=== PATIENT | male | born 1975 | race Caucasian/White ===

== ENCOUNTER 2020-04-01 10:14 | Outpatient (REF) | payer OTHER, SELFPAY | END 2020-04-01 10:15 | disposition home or self-care (01) | LOC: HO.LAB 10:14 | PROVIDERS: Visit Provider Internal Medicine | DX: Z20.828 Contact with and (suspected) exposure to other viral communicable diseases (principal) | CPT/HCPCS: C9803; U0003 ==

== ENCOUNTER 2020-07-03 16:25 | Emergency (ER) | payer OTHER, SELFPAY ==
--- NOTE | ~2020-07-03 | XR_ITS ---
EXAMINATION: XR SHOULDER, LEFT CLINICAL INFORMATION: Pain. COMPARISON: None TECHNIQUE: Three views of the left shoulder. FINDINGS: Slightly atypical positioning/technique. The humeral head articulates with the glenoid. Glenohumeral joint space is maintained. No acute fracture. No gross dislocation. Limited evaluation of the AC joint due to technique.. No soft tissue calcification. Left clavicle appears intact. XR/XR shoulder LT min 2V IMPRESSION: No evidence of acute fracture.
[2020-07-03 16:30] VITALS: BP 132/89; PULSE 110; RESP 18; TEMP 36.7; O2SAT 97; BMI 26.6
== END 2020-07-03 18:12 | disposition left against medical advice (07) ==
PROVIDERS: Emergency Provider Emergency Medicine; PCP Internal Medicine
DX: M25.512 Pain in left shoulder (principal)
CPT/HCPCS: 73030; 99282; 99283

== ENCOUNTER 2022-06-23 20:46 | Emergency (ER) | payer MEDICAID, SELFPAY ==
--- NOTE | ~2022-06-23 | CT_ITS ---
EXAMINATION: CT HEAD WITHOUT CONTRAST CLINICAL INFORMATION: Headache. History of peritoneal shunt. COMPARISON: CT head 06/10/2008 TECHNIQUE: Contiguous axial imaging was performed from the skull base to vertex without intravenous administration of contrast. Coronal and sagittal reformatted images are performed at CT scanner This CT examination was performed using dose optimization techniques as appropriate, variously including the following: *Automated exposure control *Adjustment of mA and/or kV according to patient size (this includes techniques or standardized protocols for targeted exams where dose is matched to indication/reason for exam; i.e. extremities or head) *Use of iterative reconstruction technique DLP: 821 mGy-cm FINDINGS: Redemonstration of findings of Chiari malformation of abnormal posterior fossa, low lying tonsils and agenesis of the corpus callosum. Redemonstration of the 3 right-sided ventricular shunt catheters one of which crosses the midline and terminates in the left lateral frontal horn. The Lateral ventricles are slitlike. No change in appearance since prior study. At the left vertex there is a small hypodense extra-axial collection, small subdural hygroma measuring 0.5 cm in diameter coronal image 128/195 series 7. Low attenuation of this fluid consistent with a chronic subdural hygroma. No acute extra-axial bleed. No intracranial hemorrhage. No mass or mass effect. CT/CT head/brain wo IV con IMPRESSION: 1. No acute intracranial abnormality. 2. Stable appearance of the right-sided ventricular shunt catheters. The lateral ventricles are slitlike. No change since prior study. 3. Small chronic subdural hygroma at the left vertex. No acute extra-axial bleed. No mass effect. 4. Redemonstration of Chiari malformation and agenesis of the corpus callosum.
[2022-06-23 20:49] VITALS: BP 144/90; PULSE 101; RESP 18; TEMP 36.6; O2SAT 98; BMI 25.8
[2022-06-23 21:46] LABS: MANUAL DIFF FLAG NO
[2022-06-23 21:48] LABS: Basophils Percent Auto 0.3 % (0-2); Eosinophils Absolute Auto 0.1 X10*3/uL (0.0-0.4); Eosinophils Percent Auto 1.2 % (0-4); Hemoglobin 14.1 g/dl (14.0-18.0); Imm Gran Abs Auto 0.02 X10*3/uL (0.00-0.03); Imm Gran Pct Auto 0.3 % (0.0-0.4); Lymphocytes Percent Auto 17.3 % (20-40); Mean Corpuscular HGB Conc 32.8 g/dl (31.0-36.0); Mean Corpuscular Hemoglobin 30.3 pg (27.0-33.0); Mean Corpuscular Volume 92.5 fL (80.0-98.0); Mean Platelet Volume 9.7 fL (9.4-12.4); Monocytes Absolute Auto 0.7 X10*3/uL (0.1-1.2); Monocytes Percent Auto 11.5 % (2-11); Neutrophils Absolute Auto 4.1 x10*3/uL (2.0-8.3); Neutrophils Percent Auto 69.4 % (45-73); Platelet Count 177 X10*3/uL (160-400); Red Blood Count 4.65 X10*6/uL (4.60-5.80); Red Cell Distribution Width 13.2 % (11.0-16.0); White Blood Count 5.9 X10*3/uL (4.8-10.8)
[2022-06-23 22:14] LABS: Anion Gap 13 (12-20); Blood Urea Nitrogen 15 mg/dL (9-16); Calcium 8.8 mg/dL (8.4-10.2); Carbon Dioxide 28 mmol/L (22-29); Chloride 103 mmol/L (96-108); Creatinine Clr Calc Pharmacy 93.3; Estimated Glomerular Filt Rate > 60; Glucose Random 141 mg/dL (60-115); Potassium 4.1 mmol/L (3.3-5.1); Sodium 140 mmol/L (135-145)
[2022-06-23 22:31] LABS: COVID-19 Test Negative (Negative); IDNOW Serial# 6674DD1D
--- NOTE | 2022-06-23 22:51 | ED.GENADULT ---
HPI - General Adult General Chief complaint: General Medical Stated complaint: not feeling right not specific Time Seen by Provider: 06/23/22 22:40 Source: patient, family, RN notes reviewed and old records reviewed Mode of arrival: ambulatory Limitations: other (History of cerebral palsy with left-sided deficits) History of Present Illness HPI narrative: 47-year-old male past medical history significant for cerebral palsy, hydrocephalus status post peritoneal shunting presents for evaluation of headache. Patient reports that he has been developing gradual a right-sided headache that started about 8 hours ago He states the pain starts his right temporal region and radiates around the right side with head Towards the back of his head He rates his current discomfort as 6/10. He reports some light sensitivity but denies any visual loss He reports some subjective chills, nausea or body aches He denies any neck pain Denies any cough, shortness of breath or sick contacts He denies any dizziness he reports his balance is at his baseline Related Data Previous Rx's Medication Instructions Recorded ProAir HFA 90 mcg/actuation 2 puff inhalation Q6H PRN for 06/18/20 aerosol inhaler (albuterol sulfate) wheezing #8.5 grams azelastine 137 mcg (0.1 %) nasal 2 spray intranasal BID #90 mL 11/09/21 spray aerosol prednisone 20 mg tablet See Rx Instructions PO DAILY 10 03/07/22 days #15 tabs Allergies Allergy/AdvReac Type Severity Reaction Status Date / Time pineapple Allergy Mild Rash Verified 06/23/22 20:49 Review of Systems Constitutional: Constitutional: Reports as per HPI, Reports body ache(s), Reports chills, Denies fatigue, Denies fever(s), Reports headache(s) and Reports weakness ENT: Reports headache(s) Cardiovascular: Cardiovascular: Denies chest pain and Denies dyspnea Respiratory: Respiratory: Denies cough and Denies dyspnea Gastrointestinal: Gastrointestinal: Denies abdominal pain, Denies constipation, Reports nausea and Denies vomiting Genitourinary: Genitourinary: Denies difficulty urinating and Denies dysuria Neurologic: Denies Abnormal speech present, Reports headache(s) and Reports weakness Endocrine: Endocrine: Denies fatigue [facility] Past Medical History Medical History (Updated 06/23/22 @ 23:51 by Power Vega) Asthma Cerebral palsy Dyspnea Empyema Social History Social History Advance Directives: No Advance Directives Information Provided: Yes Physical Exam ED Vital Signs: Vital Signs - 24 hr 06/23/22 20:49 Temperature 98 F Pulse Rate 101 H Respiratory Rate 18 Blood Pressure 144/90 H Pulse Oximetry 98 Oxygen Delivery Method Room Air BMI result Body Mass Index 25.8 Const General: healthy appearing, comfortable, no acute distress, alert and awake Nutritional Appearance: well nourished Orientation/consciousness: patient oriented x3 Eyes Eyelids: Yes eyelids normal Conjunctivae: conjunctivae normal Sclerae: sclerae normal Corneas: corneas normal Pupils: Equal, round and reactive pupils present EOM: EOMs intact bilaterally Resp Effort & Inspection: normal respiratory effort, able to speak in complete sentences, no audible wheezes and not labored GI Inspection: Yes scar Palpation (GI): Soft to palpation, nontender and no guarding Auscultation: normoactive bowel sounds Skin General skin exam: no rashes or lesions noted and elasticity normal Lesions: no lesions Rashes: no rashes Neuro Other: Club Waiter/Waitress strength left upper extremity is 3/5 compared to 5/5 on the right. Flexion and extension of the left upper extremity is 4/5 compared to 5/5 on the right. Similarly, flexion-extension to the major muscle groups of the left lower extremity L4-5 when compared to 5/5 on right General: patient oriented x3 Cranial nerves: Yes Equal, round and reactive pupils present Cognition (Neuro): normal cognition Speech: No Abnormal speech present Motor exam (neuro): Pronator motor function not present, no tremor noted and Other motor observations present Extrem Left upper extremity: hand (Recurrent deformity with decreased range of motion of the left hand) Medical Decision Making Medical Decision Making MDM Narrative: 43-year-old male presents for evaluation having. Clinically his afebrile but tachycardic to 101 beats per minute. He has flu-like symptoms concerning for viral syndrome. He tested negative for COVID-19. His labs are without worrisome abnormalities. Patient denies any shortness of breath, lung sounds are clear, no abdominal pain nausea or vomiting. Will defer any further imaging of the chest or abdomen at this time. The patient reports that his headache feels different to previous headaches and is concerned about some. We will get a CT scan to evaluate for degree of hydrocephalus and possible subtle malfunction. The patient is neurologically at his baseline. I have a very low suspicion for CVA or intracranial hemorrhage. Differential Diagnosis Viral syndrome Acute headache Influenza COVID-19 Fever Normal-pressure hydrocephalus Peritoneal shunt dysfunction Lab Data 06/23/22 21:42 06/23/22 21:42 Labs: Lab Results 06/23/22 06/23/22 06/23/22 Range/Units 21:42 21:42 21:42 WBC 5.9 (4.8-10.8) X10*3/uL RBC 4.65 (4.60-5.80) X10*6/uL Hgb 14.1 (14.0-18.0) g/dl Hct 43.0 (42.0-52.0) % MCV 92.5 (80.0-98.0) fL MCH 30.3 (27.0-33.0) pg MCHC 32.8 (31.0-36.0) g/dl RDW 13.2 (11.0-16.0) % Plt Count 177 (160-400) X10*3/uL MPV 9.7 (9.4-12.4) fL Immature Gran % (Auto) 0.3 (0.0-0.4) % Neut % (Auto) 69.4 (45-73) % Lymph % (Auto) 17.3 L (20-40) % [place] % (Auto) 11.5 H (2-11) % Eos % (Auto) 1.2 (0-4) % Baso % (Auto) 0.3 (0-2) % Lymph # (Auto) 1.0 L (1.2-4.9) X10*3/uL [place] # (Auto) 0.7 (0.1-1.2) X10*3/uL Eos # (Auto) 0.1 (0.0-0.4) X10*3/uL Baso # (Auto) 0.0 (0.0-0.2) X10*3/uL Abs Immat Gran (auto) 0.02 (0.00-0.03) X10*3/uL Absolute Neuts (auto) 4.1 (2.0-8.3) x10*3/uL Absolute Nucleated RBC 0.000 (0.0-0.012) X10*3/uL Nucleated RBC % (auto) 0.0 (0.0-0.2) /100WBC Sodium 140 (135-145) mmol/L Potassium 4.1 (3.3-5.1) mmol/L Chloride 103 (96-108) mmol/L Carbon Dioxide 28 (22-29) mmol/L Anion Gap 13 (12-20) BUN 15 (9-16) mg/dL Creatinine 1.01 (0.5-1.4) mg/dL Estim Creat Clear Calc 93.3 Estimated GFR > 60 Random Glucose 141 H (60-115) mg/dL Calcium 8.8 (8.4-10.2) mg/dL COVID-19 (CRUZ) Negative (Negative) COVID-19 Clin Com See Note Discharge Plan Discharge Clinical Impression: Headache Patient Disposition: Home, Self-Care Instructions: Acute Headache (ED) Additional Instructions: He may continue to use ibuprofen or Tylenol for any further headaches. Your CT scan did not show any abnormality of your ventricles or dysfunction of your shunt Follow-up with your primary doctor Prescriptions: No Action albuterol sulfate [ProAir HFA] 90 mcg/actuation HFA aerosol inhaler 2 puff inhalation Q6H PRN (Reason: for wheezing) Qty: 8.5 11RF azelastine 137 mcg (0.1 %) aerosol,spray 2 spray intranasal BID Qty: 90 3RF prednisone 20 mg tablet See Rx Instructions PO DAILY 10 Days Qty: 15 0RF Rx Instructions: PO daily; Take 2 tabs daily x 5 days, then 1 tablet daily x 5 days
[2022-06-24 00:01] VITALS: PULSE 92; RESP 16; O2SAT 97
== END 2022-06-24 00:02 | disposition home or self-care (01) ==
PROVIDERS: Emergency Provider Emergency Medicine
DX: R51.9 Headache, unspecified (principal); Z20.822 Contact with and (suspected) exposure to COVID-19; Z20.828 Contact with and (suspected) exposure to other viral communicable diseases; Z79.899 Other long term (current) drug therapy
CPT/HCPCS: 70450; 80048; 85025; 87635; 99282; 99284

== ENCOUNTER 2022-07-22 13:46 | Outpatient (REF) | payer OTHER, SELFPAY ==
--- NOTE | 2022-07-22 16:04 | PFT_ITS ---
FLOWS: 1. FEV1 89% of predicted at 3.47 L. 2. FVC 80% of predicted at 4.00 L. 3. FEV1 to FVC ratio of 0.87. 4. No bronchodilator response. LUNG VOLUMES: 1. Total lung capacity 86% of predicted at 5.83 L. 2. Residual volume 84% of predicted at 1.63 L. 3. Slow vital capacity 87% of predicted at 4.20 L. 4. Expiratory reserve volume 81% of predicted at 0.47 L. 5. Diffusion capacity is minimal. IMPRESSION: No obstructive or restrictive ventilatory defect. No bronchodilator response. Decreased expiratory reserve volume suggests extrathoracic restriction likely secondary to abdominal obesity. Orlando Sosa MD AP/MODL / [id number]
== END 2022-07-22 13:47 | disposition home or self-care (01) ==
LOC: HO.RESP 13:46
PROVIDERS: Visit Provider Hospitalist
DX: R06.00 Dyspnea, unspecified (principal); J45.909 Unspecified asthma, uncomplicated
CPT/HCPCS: 94060; 94727; 94729

== ENCOUNTER → 2022-08-11 13:32 | Outpatient (BNVA) | payer OTHER, SELFPAY | PROVIDERS: PCP Internal Medicine; Visit Provider Hospitalist | DX: J45.909 Unspecified asthma, uncomplicated (principal); R06.00 Dyspnea, unspecified; U09.9 Post COVID-19 condition, unspecified; G47.33 Obstructive sleep apnea (adult) (pediatric) | CPT/HCPCS: 99212 ==

== ENCOUNTER 2022-12-13 13:38 | Outpatient (AMB) | payer OTHER, SELFPAY ==
[2022-12-13 13:43] VITALS: BP 118/60; PULSE 91; O2SAT 95; BMI 30.1
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
== END 2022-12-13 14:08 | disposition home or self-care (01) ==
PROVIDERS: PCP Internal Medicine; Visit Provider Hospitalist
DX: J45.909 Unspecified asthma, uncomplicated (principal); R06.00 Dyspnea, unspecified; U07.1 COVID-19; G47.33 Obstructive sleep apnea (adult) (pediatric)
CPT/HCPCS: 99214

== ENCOUNTER → 2022-12-13 13:38 | Outpatient (BNVA) | payer OTHER, SELFPAY | PROVIDERS: PCP Internal Medicine; Visit Provider Hospitalist | DX: J45.909 Unspecified asthma, uncomplicated (principal); R06.00 Dyspnea, unspecified; G47.33 Obstructive sleep apnea (adult) (pediatric); U09.9 Post COVID-19 condition, unspecified | CPT/HCPCS: 99212 ==

== ENCOUNTER 2023-06-13 13:43 | Outpatient (AMB) | payer OTHER, SELFPAY ==
[2023-06-13 13:49] VITALS: PULSE 84; O2SAT 96; BMI 30.1
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
== END 2023-06-13 14:08 | disposition home or self-care (01) ==
PROVIDERS: PCP Internal Medicine; Visit Provider Hospitalist
DX: R06.09 Other forms of dyspnea (principal); J45.40 Moderate persistent asthma, uncomplicated; U07.1 COVID-19; G47.33 Obstructive sleep apnea (adult) (pediatric)
CPT/HCPCS: 99214

== ENCOUNTER → 2023-06-13 13:43 | Outpatient (BNVA) | payer OTHER, SELFPAY | PROVIDERS: PCP Internal Medicine; Visit Provider Hospitalist | DX: J45.40 Moderate persistent asthma, uncomplicated (principal); R06.09 Other forms of dyspnea; G47.33 Obstructive sleep apnea (adult) (pediatric); Z86.16 Personal history of COVID-19 | CPT/HCPCS: 99212 ==

== ENCOUNTER 2023-07-01 | Outpatient (REF) | payer OTHER, SELFPAY ==
[2023-07-01 08:24] VITALS: PULSE 77; RESP 14; O2SAT 98
--- NOTE | 2023-07-01 14:31 | PFT_ITS ---
Flows: FEV1: 81 % of predicted at 3.14 L FVC: 70 % of predicted at 3.82 L FEV1/FVC: 82 % Bronchodilator response: Absent Volumes: Lung volumes measurements are not available secondary to technical issue. Diffusion capacity: Normal Impression: Essentially normal spirometry. No bronchodilator response. Lung volumes measurements are not available secondary to technical issues. MTDD
== END 2023-07-01 00:01 | disposition home or self-care (01) ==
LOC: HO.RESP
PROVIDERS: PCP Internal Medicine; Visit Provider Hospitalist
DX: R06.00 Dyspnea, unspecified (principal)
CPT/HCPCS: 94010; 94640; 94727; 94729

== ENCOUNTER → 2023-07-01 14:31 | Outpatient (BNV) | payer OTHER, SELFPAY | PROVIDERS: PCP Internal Medicine; Visit Provider Internal Medicine Pulmonary Disease | DX: R06.00 Dyspnea, unspecified (principal) | CPT/HCPCS: 94060; 94729 ==

== ENCOUNTER 2023-10-04 08:38 | Outpatient (AMB) | payer OTHER, SELFPAY ==
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
[2023-10-04 09:11] VITALS: PULSE 85; O2SAT 96; BMI 30.1
== END 2023-10-04 09:30 | disposition home or self-care (01) ==
PROVIDERS: PCP Internal Medicine; Visit Provider Hospitalist
DX: R06.09 Other forms of dyspnea (principal); J45.40 Moderate persistent asthma, uncomplicated; U07.1 COVID-19; G47.33 Obstructive sleep apnea (adult) (pediatric)
CPT/HCPCS: 99214

== ENCOUNTER → 2023-10-04 08:38 | Outpatient (BNVA) | payer OTHER, SELFPAY | PROVIDERS: PCP Internal Medicine; Visit Provider Hospitalist | DX: J45.40 Moderate persistent asthma, uncomplicated (principal); R06.09 Other forms of dyspnea; G47.33 Obstructive sleep apnea (adult) (pediatric); U09.9 Post COVID-19 condition, unspecified | CPT/HCPCS: 99212 ==

== ENCOUNTER 2024-04-09 07:47 | Outpatient (REF) | payer OTHER, SELFPAY | END 2024-04-09 07:48 | disposition home or self-care (01) | LOC: HO.XRAY 07:47 | PROVIDERS: PCP Internal Medicine; Visit Provider Hospitalist | DX: R06.09 Other forms of dyspnea (principal); J45.40 Moderate persistent asthma, uncomplicated; G47.33 Obstructive sleep apnea (adult) (pediatric); R60.0 Localized edema | CPT/HCPCS: 71046; 99212 ==

== ENCOUNTER 2024-04-09 08:45 | Outpatient (AMB) | payer OTHER, SELFPAY ==
[2024-04-09 08:53] VITALS: BP 126/72; PULSE 84; O2SAT 96; BMI 31.3
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
== END 2024-04-09 09:17 | disposition home or self-care (01) ==
PROVIDERS: PCP Internal Medicine; Visit Provider Hospitalist
DX: R06.09 Other forms of dyspnea (principal); J45.40 Moderate persistent asthma, uncomplicated; G47.33 Obstructive sleep apnea (adult) (pediatric); R60.0 Localized edema
CPT/HCPCS: 99214

== ENCOUNTER → 2024-04-17 09:33 | Outpatient (REF) | payer OTHER, SELFPAY ==
--- NOTE | 2024-04-17 09:37 | CA_ITS ---
Transthoracic Echocardiogram Patient (Last, First, Middle): Jarod Napier L Gender: Male Date of : 1975 Age: 49 Procedure Date: 04/17/2024 Procedure Type: Transthoracic Echocardiogram Location: OP Height: 177.8 cm Weight: 98.88 kg BSA: 2.17 m2 Heart Rate: bpm BP: 126 / 72 mmHg Migratory Worker: EDWIN Referring MD: Kun Romero MD Fur Dresser: Curtis Brewster MD Symptoms: I27.20 - Pulmonary hypertension, unspecified Study Quality: Fair ECG Rhythm: Sinus Conclusions: - Essentially normal study Findings Left Ventricle Normal left ventricular size, thickness, and systolic function. The visually estimated ejection fraction is between 55-60%. Spectral Doppler is indicative of a normal filling pattern. Right Ventricle Normal right ventricular cavity size and systolic function. Atria Both atria are normal in size. There is no evidence of interatrial shunt. Aortic Valve Normal aortic valve structure and function. There is no aortic valve stenosis. There is no aortic valve regurgitation. Mitral Valve Normal mitral valve structure and function. There is trace mitral valve regurgitation. There is no mitral valve stenosis. Pulmonic Valve The pulmonic valve is likely normal. Tricuspid Valve Likely normal tricuspid valve structure and function. Tricuspid regurgitation envelope is inadequate for calculation of right ventricular systolic pressure. Normal right atrial pressure. Great Vessels The pulmonary artery was not well visualized. There is no dilatation of the ascending aorta measuring 3.20 cm. Venous The inferior vena cava is normal in size and collapses greater than 50% with inspiration. Pericardium/Pleural There is no evidence of pericardial effusion. Prior Study Comparison No significant change compared to prior study dated: 06/20/2019. Measurements 2D Linear Measurements IVSd: 1.03 0.6-0.9/0.6-1.0 cm LVIDd: 4.67 3.9-5.3/4.2-5.9 cm LVIDd Index: 2.15 2.4-3.2/2.2-3.1 cm/m2 LVIDs: 3.05 2.0-3.6 cm LVPWd: 0.99 0.7-1.1 cm LA Diam: 3.80 2.7-3.8/3.0-4.0 cm LAIDs Index: 1.75 1.5-2.3 cm/m2 LV Mass: 280.64 67-162/88-224 g LV Mass Index: 129.33 43-95/49-115 g/m2 LVOT Diam: 2.30 3.0+(-)1.3 cm 2D Systolic Function EF 4C: 53.30 >55% EF 2C: 64.10 >55% EF BiP: 59.20 >55% Mitral Valve MV Pk E: 0.66 MV PK A: 0.51 MV Decel Time: 132.00 E/A: 1.30 E'Lateral: 10.10 E'Medial: 7.07 E/E' Med: 9.30 E/E' Lat: 6.50 PHT: 39.00 MVA PHT: 5.64 Decel [place]: 4.96 Aortic Valve AoV Pk Sony: 1.08 AoV Mn Sony: 0.76 AoV VTI: 0.22 AoV Pk Grad: 5.00 Aov Mn Grad: 3.00 DENIZ Cont.VTI: 3.85 LVOT LVOT Pk Sony: 0.77 LVOT Mn Sony: 0.52 LVOT VTI: 0.20 LVOT Pk Grad: 2.00 LVOT Mn Grad: 1.00 LVOT Diam: 2.30 LVOT Area: 4.15 Diastolic Function MV Pk E: 0.66 MV Pk A: 0.51 E/A: 1.30 E'Medial: 7.07 E/E' Med: 9.30 E' Laterial: 10.10 E/E' Lat: 6.50 Right Ventricle TAPSE (mm): 21.20 TVS' Sony: 10.90 Tricuspid Valve RA Press: 3.00 Great Vessels Aorta Sinus of Valsalva: 3.41 2.0-3.[address] [place]: 2.94 1.7-3.4 cm Ao Asc: 3.20 2.1-3.4 cm Ao Arch: 2.90 Updated in Other Vendor System with Status of Final Curtis Brewster MD electronically signed on 04/18/2024 1:09:49 PM with status of Final
== END ==
LOC: HO.CARD 09:33
PROVIDERS: Visit Provider Hospitalist
DX: I27.20 Pulmonary hypertension, unspecified (principal)
CPT/HCPCS: 93306

== ENCOUNTER → 2024-04-17 09:37 | Outpatient (BNV) | payer OTHER, SELFPAY | PROVIDERS: Visit Provider Internal Medicine Cardiovascular Disease | DX: I27.20 Pulmonary hypertension, unspecified (principal) | CPT/HCPCS: 93306 ==

== ENCOUNTER 2024-06-13 08:37 | Outpatient (REF) | payer OTHER, SELFPAY ==
--- NOTE | ~2024-06-13 | XR_ITS ---
EXAMINATION: XR CHEST CLINICAL INFORMATION: J45.40 - Moderate persistent asthma, uncomplicated COMPARISON: 04/09/2024. 12/30/2019. TECHNIQUE: 2 views of the chest were obtained. FINDINGS: Several right thoracic anterior GASKET NOTCHER shunt tubes are present. There is mild enlargement of cardiac silhouette. Mediastinal and hilar contours appear normal. The lungs are clear bilaterally. No focal abnormal opacity. There is no pneumothorax or pleural effusion. There is no focal osseous or soft tissue abnormality. Mildly exaggerated thoracic kyphosis with mild right convex scoliosis and mild degenerative changes. Partially imaged cervical fusion. XR/XR chest 2V IMPRESSION: No active pulmonary disease. Mild cardiac enlargement. Stable examination. Electronically signed by: Rolando Carranza MD 06/13/2024 09:37 AM JOSE
--- OUTSIDE RECORDS SUMMARY | 2024-06-13 08:54 | XMS_ITS | Clinical Summary ---
Author Organization [address] [facility] Address [address] [place] [address] Phone Care Team Providers Care Saddle Stitcher Name Role Phone Matilde Danielson MD Primary Care Provider [phone] Allergies Active Allergy Reactions Criticality Noted Date Comments Nany 12/05/2018 Medications Medication Sig Dispensed Refills Start Date End Date Status melatonin 5 mg tablet Take 1 Tablet by mouth at bedtime. 06/25/2023 Active albuterol 2.5 mg /3 mL (0.083 %) nebulizer solution Take 1 Vial by nebulization every 6 hours as needed for Wheezing. 06/08/2021 Active albuterol HFA (PROAIR HFA ; PROVENTIL HFA ; VENTOLIN HFA) 90 mcg/actuation inhaler Inhale 2 Puffs into the lungs every 4 hours as needed for Cough. 06/08/2021 Active aspirin 81 mg EC tablet TAKE 1 TABLET BY MOUTH EVERY DAY 08/15/2023 Active budesonide-formote roL (Symbicort) 160-4.5 mcg/actuation inhaler Inhale 2 Puffs into the lungs daily. 08/08/2023 Active butalbital-acetami nophen-caffeine (FIORICET, ESGIC) 50-325-40 mg per tablet Take 1 Tablet by mouth every 6 hours as needed for Headaches. 09/01/2023 Active cyclobenzaprine (FLEXERIL) 5 mg tablet TAKE 2 TABS BY MOUTH 3 TIMES DAILY NEEDED FOR MUSCLE SPASMS 07/12/2022 Active FLUoxetine (PROzac) 60 mg tablet Take 1 Tablet by mouth daily. 10/26/2021 Active gabapentin (NEURONTIN) 300 mg capsule Take by mouth at bedtime. 09/01/2023 Active senna 8.6 mg tablet TAKE 1 TABLET BY MOUTH EVERYDAY AT BEDTIME 08/15/2023 Active tiZANidine (ZANAFLEX) 2 mg tablet Take 1 Tablet by mouth daily. 12/08/2022 Active tiZANidine (ZANAFLEX) 4 mg tablet TAKE 1 TABLET BY MOUTH EVERY 8 HOURS NEEDED FOR MUSCLE SPASM 01/11/2024 Active traZODone (DESYREL) 150 mg tablet Take 1 Tablet by mouth at bedtime. 08/25/2023 Active atorvastatin (LIPITOR) 80 mg tabletIndications: Dizziness and giddiness,Unsteadi ness on feet Take 1 tablet (80 mg total) by mouth 1 (one) time each day. 90 tablet 3 04/24/2024 Active meclizine (ANTIVERT) 12.5 mg tabletIndications: Dizziness and giddiness,Unsteadi ness on feet Take 1 tablet (12.5 mg total) by mouth 3 (three) times a day if needed for dizziness. 90 tablet 1 05/06/2024 Active gabapentin (NEURONTIN) 600 mg tabletIndications: Dizziness and giddiness,Unsteadi ness on feet Take 1 tablet (600 mg total) by mouth 2 (two) times a day. 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 Restrictive lung disease 06/07/2016 Encounters Date Type Department Care Team Description 05/10/2024 Telephone Internal Medicine [address] [place] [address] Matilde Danielson MD FORM 03/21/2024 1:15 PM EST Office Visit Internal Medicine - [address] [place] [address] Matilde Danielson MD Seizure disorder ([facility]) (Primary Dx); Mixed hyperlipidemia; Adult general medical examination; Mild intermittent asthma without complication; Restrictive lung disease from Last 3 Months Immunizations Name Administration Dates Next Due Influenza Quadravalent, MDCK , 0.5ml, preservative free (Flucelvax) 6mo and older 02/16/2018 Influenza, Unspecified 03/02/2022 Pfizer SARS-CoV-2 COVID-19, mRNA, LNP-S, preservative free 02/23/2021 Surgical History Surgery Date Site/Laterality Comments BACK SURGERY PROCEDURE: HISTORICAL BACK SURGERY OTHER SURGICAL HISTORY 06/17/2020 PROCEDURE: CT ARTHRD PST/PSTLAT TQ 1NTRSPC CRV BELW C2 SEGMENT Medical History Medical History Date Comments Lung nodule 04/21/2017 DX:Lung nodule Spina bifida ([facility]) 04/21/2017 DX:Spina bifida (HCC) Hydrocephalus ([facility]) 04/21/2017 DX:Haines cephalus (HCC) Seizure disorder ([facility]) 04/21/2017 DX:Se izure disorder ([facility]) History of pleural empyema 04/21/2017 DX:Hi story of pleural empyema Arnold-Chiari malformation ([facility]/H[facility]) 10/04/2017 DX:Arnold-Chiari malformation ([facility]) Depression 04/04/2017 DX:Depression Insomnia 10/04/2017 DX:Insomnia Monoplegic infantile cerebra l palsy ([facility]) 06/07/2016 DX:Monoplegic infantile cere bral palsy ([facility]) Restrictive lung disease 06/07/2016 DX:Rest rictive lung disease Allergic rhinitis 10/11/2016 DX:Allergic rh initis Asthma 10/11/2016 DX:Asthma Family History Medical History Relation Name Comments No Known Problems Brother No Known Problems Daughter No Known Problems Father No Known Problems Mother No Known Problems Other No Known Problems Sister No Known Problems Son Autoimmune disease Neg Hx Breast cancer Neg Hx Colon cancer Neg Hx Coronary artery disease Neg Hx Diabetes Neg Hx Heart attack Neg Hx Heart failure Neg Hx Hyperlipidemia Neg Hx Hypertension Neg Hx Mental illness Neg Hx Prostate cancer Neg Hx Sleep apnea Neg Hx Thyroid disease Neg Hx Relation Name Status Comments Brother Daughter Father Mother Other Sister Son Social History Tobacco Use Types Packs/Day Years Used Date Smoking Tobacco: Never Smokeless Tobacco: Never Alcohol Use Standard Drinks/Week Comments No 0 (1 standard drink = 0.6 oz pur e alcohol) Sex and Gender Information Value Date Recorded Sex Assigned at Not on file Gender Identity Not on file Sexual Orientation Not on file Job Start Date Occupation Industry Not on file Not on file Not on file Obstetrics History Last Filed Vital Signs Vital Sign Reading Time Taken Comments Blood Pressure 108/74 03/21/2024 1:20 PM EST Pulse 91 03/21/2024 1:20 PM EST Temperature 37.1 ??C (98.7 ??F) 03/21/2024 1:20 PM ES T Respiratory Rate - - Oxygen Saturation 97% 03/21/2024 1:20 PM EST Inhaled Oxygen Concentration - - Weight 93.9 kg (207 lb) 03/21/2024 1:20 PM EST Height 177.8 cm (5' 10 ) 03/21/2024 1:20 PM EST Body Mass Index 29.7 03/21/2024 1:20 PM EST Plan of Treatment Upcoming Encounters Date Type Department Care Team (Late st Contact Info) Description 03/24/2025 9:00 AM EST Office Visit Internal Medicine - [place] [address] [facility] [address] [place] [address] Matilde Danielson MD [address] [facility] [address] [place] [address] Health Maintenance Due Date Last Done Comments DTaP,Tdap,and Td Vaccines (1 - Tdap) 1994 Hepatitis B Vaccines (1 of 3 - 19+ 3-dose series) 1994 Colorectal Cancer Screening: Colonoscopy 04/16/2022 HIV Screening 04/16/2022 Hepatitis C Screening 04/16/2022 Social Influencers of Health Screening 04/16/2022 COVID-19 Vaccine ( season) 2024 03/01/2023, 02/28/2022, 02/23/2021, Additional history exists Influenza Vaccine (#1) 2024 , 03/02/2022, 02/17/2021, Additional history exists Depression Screening 04/12/2024 04/12/2023 Cholesterol Screening (Lipid Panel) 09/12/2028 09/13/2023, 09/13/2023 Pneumococcal Vaccine: Pediatrics (0 to 5 Years) and At-Risk Patients (6 to 64 Years) Completed 03/01/2023 HIB Vaccines Aged Out No longer eligi ble based on patient's age to complete this topic HPV Vaccines Aged Out No longer eligi ble based on patient's age to complete this topic Hepatitis A Vaccines Aged Out No long er eligible based on patient's age to complete this topic IPV Vaccines Aged Out No longer eligi ble based on patient's age to complete this topic MMR Vaccines Aged Out No longer eligi ble based on patient's age to complete this topic Meningococcal ACWY Vaccine Aged Out N o longer eligible based on patient's age to complete this topic RSV Immunization Patients Under 20 months Aged Out No longer eligible based on patient's age to complete this topic Varicella Vaccines Aged Out No longer eligible based on patient's age to complete this topic Procedures Procedure Name Priority Date/Time Associated Diagnosis Comments LIPID PANEL Routine 09/13/2023 DEPRESSION SCREENING Routine 04/12/2023 from Last 3 Months or Most Recently Relevant to Health Maintenance Results * Lipid panel (09/13/2023) LDL/HDL Ratio 2 0 - 4 Triglycerides 56 0 - 150 mg/dL Cholesterol 135 0 - 200 mg/dL HDL 57 40 mg/dL LDL Cholesterol 67 0 - 100 mg/dL Blood Venous blood specimen / Unknown Historical Provider LAB BLOOD ORDERAB LES * Depression Screening (04/12/2023) Pathologist [facility] Depression Screening Abstracted Historical Provider MD SALVADOR Olivas from Last 3 Months or Most Recently Relevant to Health Maintenance Care Teams Saddle Stitcher Relationship Specialty Start Date End Date Matilde Danielson MD [address] [place] [phone] PCP - General Internal Medicine 04/06/15
--- OUTSIDE RECORDS SUMMARY | 2024-06-13 08:54 | XMS_ITS | Referral Summary ---
Author Organization [facility] Address [address] [place] [address] Care Team Providers Care Conflicts Analyst Name Role Phone Dionicio Singh Primary Care Provider [phone] Allergies Active Allergy Reactions Criticality Noted Date Comments Pineapple Unknown 12/05/2018 Medications aspirin 81 mg EC tablet Take 1 tablet by mouth once a day. 3 Active atorvastatin (LIPITOR) 80 mg tablet Take 80 mg by mouth nightly. Active butalbital-acet aminophen-caffe ine (FIORICET) 50-325-40 mg tablet Take 1 tablet by mouth every 6 hours as needed for headache or migraine. Active cyclobenzaprine (FLEXERIL) 5 mg tablet Take 5 mg by mouth 3 times a day as needed for muscle spasms. 3 Active FLUoxetine (PROzac) 20 mg capsule Take 20 mg by mouth once a day. 3 Active gabapentin (NEURONTIN) 600 mg tablet Take 600 mg by mouth 2 times a day. Active ibuprofen (MOTRIN) 800 mg tablet Take 800 mg by mouth every 8 hours as needed for pain. Active meclizine (ANTIVERT) 12.5 mg tablet Take 12.5 mg by mouth 3 times a day as needed for dizziness. Active melatonin 5 mg tablet Take 5 mg by mouth nightly as needed for sleep. 3 Active senna 8.6 mg tablet Take 1 tablet by mouth daily as needed for constipation. Active tiZANidine (ZANAFLEX) 4 mg tablet Take 4 mg by mouth every 8 hours as needed for muscle spasms. 3 Active traMADoL (ULTRAM) 50 mg tablet Take 50 mg by mouth every 8 hours as needed for pain. Active traZODone (DESYREL) 50 mg tablet Take 50 mg by mouth nightly as needed for sleep. Active albuterol 2.5 mg/3 mL (0.083%) nebulizer solution Inhale 2.5 mg by mouth every 6 hours as needed for shortness of breath or wheezing. Active Active Problems Problem Noted Date Diagnosed Date Cerebrovascular disease 07/19/2023 Social History Tobacco Use Types Packs/Day Years Used Date Smoking Tobacco: Never Smokeless Tobacco: Never Tobacco Cessation:Counseling Given: Not Answered Alcohol Use Standard Drinks/Week Comments Never 0 (1 standard drink = 0.6 oz pur e alcohol) Sex and Gender Information Value Date Recorded Sex Assigned at Male 07/12/2023 9:51 AM EST Legal Sex Male 4:47 PM EDT Gender Identity Male 07/13/2023 1:02 PM EST Sexual Orientation Other 07/13/2023 1: 02 PM EST Last Filed Vital Signs Vital Sign Reading Time Taken Comments Blood Pressure 135/92 07/19/2023 10:23 AM EDT Pulse 81 07/19/2023 10:23 AM EDT Temperature 36.3 ??C (97.3 ??F) 07/19/2023 10:23 AM E DT Respiratory Rate 20 07/19/2023 10:23 AM EDT Oxygen Saturation - - Inhaled Oxygen Concentration - - Weight 90.7 kg (200 lb) 07/19/2023 10:23 AM EDT Height 175.3 cm (5' 9 ) 03/29/2023 8:39 AM EST Body Mass Index 29.53 03/29/2023 8:39 AM EST Plan of Treatment Upcoming Encounters Date Type Department Care Team (Late st Contact Info) Description 07/23/2024 1:30 PM EDT Office Visit [facility] [address] [place] [id number] Bonilla Ely MD [address] [place] [id number] Insurance [facility] MEDICAID [facility] MEDICAID Care Teams Conflicts Analyst Relationship Specialty Start Date End Date Dinoicio Singh [address] [place] [address] [place] [address] PCP - General Neurology 03/13/23
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
--- OUTSIDE RECORDS SUMMARY | 2024-06-13 08:54 | XMS_ITS | Clinical Summary ---
Author Organization [facility] Address [address] [place] [address] Care Team Providers Care Flanging Machine Operator Name Role Phone Dionicio Singh Primary Care Provider [phone] Allergies Active Allergy Reactions Criticality Noted Date [...] Noted Date Diagnosed Date Cerebrovascular disease 07/19/2023 Family History Medical History Relation Name Comments No Known Problems Daughter Kalpana Coronary artery disease Father mult iple bypass surgery Stroke Father a few strokes r ecently No Known Problems Father's Sister Stroke Mother CADASIL No Known Problems Mother's Sister 1 No Known Problems Mother's Sister 2 No Known Problems Other 7 No Known Problems Other 8 Seizures Other 14 Stroke Other 14 Seizures Other 17 Stroke Other 17 Seizures Other 20 Stroke Other 20 Seizures Other 21 Stroke Other 21 Myocardial Infarction Paternal Grandmother Autism spectrum disorder Neg Hx defects Neg Hx Congenital Hearing Loss Neg Hx Congenital heart disease Neg Hx Consanguinity Neg Hx Intellectual Disability Neg Hx Relation Name Status Comments Daughter Kalpana Alive Father Alive Father's Brother (Age 45) Father's Sister Alive Maternal Grandfather Maternal Grandmother Mother (Age 72) Mother's Sister 1 Alive Mother's Sister 2 Alive Other 1 Alive Other 2 Alive Other 3 Alive Other 4 Alive Other 5 Alive Other 6 Alive Other 7 Alive Other 8 Alive Other 9 Alive Other 10 Alive Other 11 Alive Other 12 Alive Other 13 Alive Other 14 Other 15 Other 16 Other 17 Other 18 Other 19 Other 20 Alive Other 21 Alive Paternal Grandfather no info , never met him Paternal Grandmother (Age 75) Social History Tobacco Use Types Packs/Day Years [...] Description 07/23/2024 1:30 PM EDT Office Visit [facility] [address] [place] [address] Bonilla Ely MD [address] [place] [address] Health Maintenance Due Date Last Done Comments Cologuard 1975 Colon Cancer Screening 1975 Colonoscopy 1975 FOBT / Fit Test 1975 HIV Screening 1975 Hepatitis C Screening 1975 Sigmoidoscopy 1975 Hepatitis B Vaccines (1 of 3 - 19+ 3-dose series) 1994 DTaP,Tdap,and Td Vaccines (1 - Tdap) 1997 COVID-19 Vaccine (2023-2 5 season) 2024 03/01/2023, 02/28/2022, 02/23/2021, Additional history exists Influenza Vaccine (#1) 2024 , 03/02/2022, 02/17/2021, Additional history exists Alcohol/Substance Use Screening 05/08/2024 Depression Screening and Follow-Up 05/08/2024 Social Drivers of Health Justyna ual Screening 05/08/2024 RSV Vaccine (60+ years old a nd patients) (1 - 1-dose 75+ series) 2050 Pneumococcal Vaccine: Pediat refugio (0-5 Years) and At-Risk Patients (6-64 Years) Completed 03/01/[address] [place] [address] [place] [address] MEDICAID Care Teams Flanging Machine Operator Relationship Specialty Start Date End Date Dionicio Singh [address] [place] [address] [place] [address] PCP - General Neurology 03/13/23
== END 2024-06-13 08:38 | disposition home or self-care (01) ==
LOC: HO.XRAY 08:37
PROVIDERS: PCP Internal Medicine; Visit Provider Hospitalist
DX: J45.40 Moderate persistent asthma, uncomplicated (principal); R06.09 Other forms of dyspnea; R60.0 Localized edema; G47.33 Obstructive sleep apnea (adult) (pediatric)
CPT/HCPCS: 71046; 99212

== ENCOUNTER → 2024-06-13 08:40 | Outpatient (BNV) | payer OTHER, SELFPAY | PROVIDERS: PCP Internal Medicine; Visit Provider Radiology Diagnostic Radiology | DX: J45.40 Moderate persistent asthma, uncomplicated (principal) | CPT/HCPCS: 71046 ==

== ENCOUNTER → 2024-06-13 08:53 | Outpatient (AMB) | payer OTHER, SELFPAY ==
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
== END | disposition home or self-care (01) ==
PROVIDERS: PCP Internal Medicine; Visit Provider Hospitalist
DX: R06.09 Other forms of dyspnea (principal); J45.40 Moderate persistent asthma, uncomplicated; G47.33 Obstructive sleep apnea (adult) (pediatric); R60.0 Localized edema
CPT/HCPCS: 99214

== ENCOUNTER 2025-02-11 08:44 | Outpatient (AMB) | payer OTHER, SELFPAY ==
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
[2025-02-11 08:49] VITALS: BP 118/70; PULSE 78; O2SAT 95; BMI 28.3
--- OUTSIDE RECORDS SUMMARY | 2025-02-11 09:27 | XMS_ITS | Clinical Summary ---
Author Organization [facility] Address [address] [place] [address] Care Team Providers Care Asian Studies Program Chair Name Role Phone Dionicio Singh Primary Care Provider [phone] Allergies Active Allergy Reactions Criticality Noted Date [...] nightly as needed for sleep. 3 Active albuterol 2.5 mg/3 mL (0.083%) nebulizer solution Inhale 2.5 mg by mouth every 6 hours as needed for shortness of breath or wheezing. Active Active Problems Problem Noted Date Diagnosed Date White matter disease 07/28/2024 Sequela of cardioembolic stroke 07/28/2024 Cerebrovascular disease 07/19/2023 Family History Medical History [...] Sign Reading Time Taken Comments Blood Pressure 127/87 07/23/2024 1:07 PM EDT Pulse 114 07/23/2024 1:07 PM EDT Temperature 37 C (98.6 F) 07/23/2024 1:07 PM EDT Respiratory Rate 16 07/23/2024 1:07 PM EDT Oxygen Saturation - - Inhaled Oxygen Concentration - - Weight 94.8 kg (209 lb) 07/23/2024 1:07 PM EDT Height 175.3 cm (5' 9 ) 07/23/2024 1:07 PM EDT Body Mass Index 30.86 07/23/2024 1:07 PM EDT Plan of Treatment Upcoming Encounters Date Type Department Care Team (Late st Contact Info) Description 03/25/2025 1:00 PM EST Office Visit [facility] [address] [place] [address] [phone] Dede Francisco MD [address] [place] [phone] Health Maintenance Due Date Last Done Comments Cologuard 1975 Colon Cancer Screening 1975 Colonoscopy 1975 FOBT / Fit Test 1975 HIV Screening 1975 Hepatitis C Screening 1975 Sigmoidoscopy 1975 Hepatitis B Vaccines (1 of 3 - 19+ 3-dose series) 1994 DTaP,Tdap,and Td Vaccines (1 - Tdap) 1997 Diabetes Screening 2010 Alcohol/Substance Use Screening 05/08/2024 Depression Screening and Follow-Up 05/08/2024 Social Drivers of Health Justyna ual Screening 05/08/2024 COVID-19 Vaccine (6 - 2024-2 6 season) 2025 03/01/2023, 02/28/2022, 02/23/2021, Additional history exists Influenza Vaccine (#1) 2025 , 03/02/2022, 02/17/2021, Additional history exists RSV Vaccine (60+ years old a nd patients) (1 - 1-dose 75+ series) 2050 Pneumococcal Vaccine: Pediat refugio (0-5 Years) and At-Risk Patients (6-50 Years) Completed 03/01/[address] [place] [address] [place] [address] MEDICAID [employer] Care Teams Asian Studies Program Chair Relationship Specialty Start Date End Date Dionicio Singh [address] [place] [address] [place] [address] PCP - General Neurology 03/13/23
--- OUTSIDE RECORDS SUMMARY | 2025-02-11 09:27 | XMS_ITS | Clinical Summary ---
Author Organization [address] [facility] Address [address] [place] [address] Phone Care Team Providers Care Equipment Mechanic Name Role Phone Matilde Danielson MD Primary Care Provider [phone] Allergies Active Allergy Reactions Criticality Noted Date Comments Pineapple 12/05/2018 Medications albuterol 2.5 mg /3 mL (0.083 %) nebulizer solution Take 1 Vial by nebulization every 6 hours as needed for Wheezing. 2 Active albuterol HFA (PROAIR HFA ; PROVENTIL HFA ; VENTOLIN HFA) 90 mcg/actuation inhaler Inhale 2 Puffs into the lungs every 4 hours as needed for Cough. 2 Active budesonide-form oteroL (Symbicort) 160-4.5 mcg/actuation inhaler Inhale 2 Puffs into the lungs daily. 4 Active butalbital-acet aminophen-caffe ine (FIORICET, ESGIC) 50-325-40 mg per tablet Take 1 Tablet by mouth every 6 hours as needed for Headaches. 4 Active aspirin 81 mg EC tabletIndicatio ns:Dizziness and giddiness,Unste adiness on feet Take 1 tablet (81 mg total) by mouth 1 (one) time each day. 90 tablet 1 5 Active atorvastatin (LIPITOR) 80 mg tabletIndicatio ns:Dizziness and giddiness,Unste adiness on feet Take 1 tablet (80 mg total) by mouth 1 (one) time each day. 90 tablet 3 5 Active cyclobenzaprine (FLEXERIL) 5 mg tablet Take 1 tablet (5 mg total) by mouth 3 (three) times a day if needed for muscle spasms. 30 tablet 3 5 Active gabapentin (NEURONTIN) 600 mg tabletIndicatio ns:Dizziness and giddiness,Unste adiness on feet Take 1 tablet (600 mg total) by mouth 2 (two) times a day. 60 tablet 8 5 Active meclizine (ANTIVERT) 12.5 mg tabletIndicatio ns:Dizziness and giddiness,Unste adiness on feet Take 1 tablet (12.5 mg total) by mouth 3 (three) times a day if needed for dizziness. 90 tablet 1 5 Active melatonin 5 mg tablet Take 1 tablet (5 mg total) by mouth at bedtime. at bedtime. 90 tablet 1 5 Active senna 8.6 mg tabletIndicatio ns:Dizziness and giddiness,Unste adiness on feet Take 1 tablet (8.6 mg total) by mouth at bedtime. 90 tablet 1 5 Active tiZANidine (ZANAFLEX) 4 mg tablet Take 1 tablet (4 mg total) by mouth every 8 (eight) hours if needed for muscle spasms. 270 tablet 1 5 Active traZODone (DESYREL) 150 mg tablet Take 1 tablet (150 mg total) by mouth at bedtime. at bedtime. 90 tablet 2 5 Active FLUoxetine (PROzac) 20 mg capsule Take 3 capsules (60 mg total) by mouth 1 (one) time each day. 90 each 5 5 Active Active Problems Problem Noted Date Diagnosed Date Nonintractable headache 06/27/2022 COVID-19 virus detected 11/10/2021 Herniation of intervertebral disc at C5-C6 level 06/15/2020 Arnold-Chiari malformation ([facility] V24, [facility] V28) 10/04/2017 Insomnia 10/04/2017 Hydrocephalus ([facility] V24, [facility] V28) 017 Seizure disorder ([facility] V24, [facility] V28) 04/07 Lung nodule 04/21/2017 Spina bifida ([facility] V24, [facility] V28) 04/21/20 17 Depression 04/04/2017 Allergic rhinitis 10/11/2016 Asthma 10/11/2016 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, [facility]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 Restrictive lung disease 06/07/2016 Encounters Date Type Department Care Team Description 01/20/2025 Telephone [facility] [address] [facility] [address] [place] [address] Sri Hebert [place] 12/31/2024 Telephone Internal Medicine - [place] [address] [facility] [address] [place] [address] Hiram Claudio [place] 11/22/2024 9:30 AM EDT Office Visit [facility] [address] [facility] [address] [place] [address] Mildred Mendoza, PA Seizure disorder ([facility] V24, [facility] V28) (Primary Dx) from Last 3 Months Immunizations Immunization Administration Dates Next Due Influenza Quadravalent, MDCK , 0.5ml, preservative free (Flucelvax) 6mo and older 02/16/2018 Influenza, Unspecified 03/02/2022 Pfizer SARS-CoV-2 COVID-19, mRNA, LNP-S, preservative free 02/23/2021 Surgical History Surgery Date Site/Laterality Comments BACK SURGERY PROCEDURE: HISTORICAL BACK SURGERY OTHER SURGICAL HISTORY 06/17/2020 PROCEDURE: ME ARTHRD PST/PSTLAT TQ 1NTRSPC CRV BELW C2 SEGMENT Medical History Medical History Date Comments Lung nodule 04/21/2017 DX:Lung nodule Spina bifida ([facility] V24, C [facility] V28) 04/21/2017 DX:Spina bifida (HCC) Hydrocephalus ([facility] V24, [facility] V28) 04/21/2017 DX:Hydrocephalus (HCC) Seizure disorder ([facility] V2 4, [facility] V28) 04/21/2017 DX:Seizure disorder ([facility]) History of pleural empyema 04/21/2017 DX:Ne story of pleural empyema Arnold-Chiari malformation ( [facility] V24, [facility] V28) 10/04/2017 DX:Arnold-Chiari malformatio n ([facility]) Depression 04/04/2017 DX:Depression Insomnia 10/04/2017 DX:Insomnia 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, [facility]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 DX:Monoplegic infantile cer ebral palsy ([facility]) Restrictive lung disease 06/07/2016 DX:Rest rictive lung [...] Recorded Sex Assigned at Not on file Legal Sex Male 6:39 PM EST Gender Identity Not on file Sexual Orientation Not on file Obstetrics History Last Filed Vital Signs Vital Sign Reading Time Taken Comments Blood Pressure 106/74 11/22/2024 9:23 AM EDT Pulse 70 11/22/2024 9:23 AM EDT Temperature 36.8 C (98.2 F) 11/22/2024 9:23 AM EDT Respiratory Rate - - Oxygen Saturation 97% 11/22/2024 9:23 AM EDT Inhaled Oxygen Concentration - - Weight 91.3 kg (201 lb 3.2 oz) 11/22/2024 9:23 A M EDT Height 175.3 cm (5' 9 ) 11/22/2024 9:23 AM EDT Body Mass Index 29.71 11/22/2024 9:23 AM EDT Plan of Treatment Upcoming Encounters Date Type Department Care Team (Late st Contact Info) Description 03/05/2025 2:30 PM EDT Office Visit [facility] [place] [address] [place] [phone] Mildred Mendoza PA [address] [place] [address] 03/24/2025 9:00 AM EST Office Visit Internal Medicine - [place] [address] [place] [phone] Matilde Danielson MD [address] [facility] [address] [place] [address] Health Maintenance Due Date Last Done Comments Colorectal Cancer Screening: Colonoscopy 1975 DTaP,Tdap,and Td Vaccines (1 - Tdap) 1994 Hepatitis B Vaccines (1 of 3 - 19+ 3-dose series) 1994 HIV Screening 04/16/2022 Hepatitis C Screening 04/16/2022 Social Influencers of Health Screening 04/16/2022 Depression Screening 05/08/2024 04/12/2023 COVID-19 Vaccine ( season) 2025 03/01/2023, 02/28/2022, 02/23/2021, Additional history exists Influenza Vaccine (#1) 2025 , 03/02/2022, 02/17/2021, Additional history exists Cholesterol Screening (Lipid Panel) 09/12/2028 09/13/2023, 09/13/2023 RSV Immunization Adult Patients (1 - 1-dose 75+ series) 2050 Pneumococcal Vaccine: Pediatrics (0 to 5 Years) and At-Risk Patients (6 to 49 Years) Completed 03/01/2023 HIB Vaccines Aged Out [...] patient's age to complete this topic Meningococcal B Vaccine Aged Out No l onger eligible based on patient's age to complete this topic RSV Immunization Patients Under 20 months Aged Out No longer eligible based on patient's age to complete this topic Varicella Vaccines Aged Out No longer eligible based on patient's age to complete this topic Procedures Procedure Name Priority Date/Time Associated Diagnosis Comments EXTERNAL MRI REPORT 12/13/2024 LIPID PANEL Routine 09/13/2023 DEPRESSION SCREENING Routine 04/12/2023 from Last 3 Months or Most Recently Relevant to Health Maintenance Results * External MRI Report (12/13/2024) Anatomical Region Laterality Modality Magnetic Resonan ce us Provider [facility] PROCEDURES Final Result * Lipid panel (09/13/2023) LDL/HDL Ratio 2 0 - 4 Triglycerides 56 0 - 150 mg/dL Cholesterol 135 0 - 200 mg/dL HDL 57 >=40 mg/dL LDL Cholesterol 67 0 - 100 mg/dL Blood Venous blood specimen / Unknown Historical Provider LAB BLOOD ORDERABLES Geena l Result * Depression Screening (04/12/2023) Pathologist [facility] Depression Screening Abstracted Historical Provider HEALTH MAINTENANCE Final Result from Last 3 Months or Most Recently Relevant to Health Maintenance Insurance [facility] [employer] Care Teams Equipment Mechanic Relationship Specialty Start Date End Date Matilde Danielson MD [address] [address] PCP - General Internal Medicine 04/06/15
--- OUTSIDE RECORDS SUMMARY | 2025-02-11 09:27 | XMS_ITS ---
Author Name [facility] Organization Unknown Care Team Organization Name Specialty Phone Email Start Date End Da te [facility] JOEL ANGEL Primary Care 09/12/2022 12/25/2023
--- OUTSIDE RECORDS SUMMARY | 2025-02-11 09:27 | XMS_ITS | Clinical Summary ---
Author Organization [facility] Address [address] [place] [id number] Phone Care Team Providers Care Ceramics Instructor Name Role Phone Aba Polanco MD Primary Care Provider Melissa Grant MD Unavailable [phone] Allergies No known active allergies Medications ibuprofen (ADVIL,MOTRIN) 800 MG tablet Take 800 mg by mouth every 8 (eight) hours as needed for pain (specific location in comments). Active ALBUTEROL INHL Inhale into the lungs. Active albuterol 2.5 mg /3 mL (0.083 %) nebulizer solution Take 2.5 mg by nebulization every 6 (six) hours as needed. Active traMADol (ULTRAM) 50 mg tablet Take 50 mg by mouth every 6 (six) hours as needed for pain (specific location in comments). Active carisoprodol (SOMA) 350 MG tablet Take 350 mg by mouth 3 (three) times a day as needed. Active naproxen sodium (ALEVE) 220 MG tablet Take 220 mg by mouth 2 (two) times a day with meals. Active Active Problems Problem Noted Date Diagnosed Date Pain 07/06/2015 Resolved Problems Problem Noted Date Diagnosed Date Resolved Date Costochondritis 06/01/2015 07/06/2015 Family History Medical History Relation Comments Stroke Father Cancer Mother rectal Stroke Mother intra-operativel y while undergoing surgery for rectal caner Relation Status Comments Father Mother Social History Tobacco Use Types Packs/Day Years Used Date Smoking Tobacco: Never Alcohol Use Standard Drinks/Week Comments No 0 (1 standard drink = 0.6 oz pur e alcohol) Education Answer Date Recorded Are you interested in more education? Not on chanelle e 09/18/2022 Are you concerned about learning? Not on file 09/18/2022 No 09/18/2022 No 09/18/2022 Digital Access Answer Date Recorded No 09/28/2022 No 09/28/2022 No 09/28/2022 Reliable internet access at home? Not on file 09/28/2022 Device with a working camera? Not on file Sex and Gender Information Value Date Recorded Sex Assigned at Not on file Legal Sex Male 8:40 AM EST Gender Identity Not on file Sexual Orientation Not on file Last Filed Vital Signs Vital Sign Reading Time Taken Comments Blood Pressure 157/97 07/06/2015 1:16 PM EST Pulse 127 07/06/2015 1:16 PM EST Temperature 37.1 C (98.7 F) 07/06/2015 1:16 PM EST Respiratory Rate 18 07/06/2015 1:16 PM EST Oxygen Saturation 98% 07/06/2015 1:16 PM EST Inhaled Oxygen Concentration - - Weight 76 kg (167 lb 9.6 oz) 07/06/2015 1:16 PM EST Height 175.3 cm (5' 9 ) 07/06/2015 1:16 PM EST Body Mass Index 24.75 07/06/2015 1:16 PM EST Plan of Treatment Health Maintenance Due Date Last Done Comments Adult Td,Tdap Booster 1975 LIPID PANEL 1975 DEPRESSION SCREENING 1987 HEPATITIS C SCREENING 1993 HIV ONE-TIME SCREENING (18-6 5 YEARS) 1993 SMOKING STATUS SCREENING (On ce After 26 Yrs) 2001 COLOGUARD 2020 COLONOSCOPY 2020 COLORECTAL CANCER SCREENING 2020 FIT TEST 2020 FOBT 2020 SIGMOIDOSCOPY 2020 VIRTUAL COLONOSCOPY 2020 INFLUENZA VACCINE (#1) 2024 , 02/19/2020, 02/16/2018 COVID-19 VACCINE (2024-2 6 season) 2025 02/23/2021, 08/18/2020, 07/28/2020 HEPATITIS A VACCINES Aged Out No long er eligible based on patient's age to complete this topic HIB VACCINES Aged Out No longer eligi ble based on patient's age to complete this topic MENINGOCOCCAL VACCINES (ACWY) Aged Out No longer eligible based on patient's age to complete this topic MENINGOCOCCAL VACCINES (B) Aged Out N o longer eligible based on patient's age to complete this topic PNEUMOCOCCAL VACCINES (0-49 years) Aged Out No longer eligible b ased on patient's age to complete this topic Medical Devices Not on file Insurance [employer]tery TOTAL CHOICE INDEMNITY [employer] TOTAL CHOICE INDEMNITY [employer] TOTAL CHOICE INDEMNITY [employer] TOTAL CHOICE INDEMNITY [employer] TOTAL CHOICE INDEMNITY [employer] TOTAL CHOICE INDEMNITY [employer] TOTAL CHOICE INDEMNITY [employer] [facility] TOTAL CHOICE INDEMNITY [employer] TOTAL CHOICE INDEMNITY Care Teams Ceramics Instructor Relationship Specialty Start Date End Date Aba Polanco MD [address] [place] [id number] PCP - General 05/15/15 Melissa Grant MD [address] [place] [address] [address] [place] [address] Neurosurgery 07/06/15 Additional Source Comments The information contained in this document represents components of the legal health record. It is not the complete legal health record.[facility]
== END 2025-02-11 09:17 | disposition home or self-care (01) ==
PROVIDERS: PCP Internal Medicine; Visit Provider Hospitalist
DX: R06.09 Other forms of dyspnea (principal); J45.40 Moderate persistent asthma, uncomplicated; G47.33 Obstructive sleep apnea (adult) (pediatric); R60.0 Localized edema
CPT/HCPCS: 99214

== ENCOUNTER → 2025-02-11 08:44 | Outpatient (BNVA) | payer OTHER, SELFPAY | PROVIDERS: PCP Internal Medicine; Visit Provider Hospitalist | DX: U07.1 COVID-19 (principal); J45.40 Moderate persistent asthma, uncomplicated; R06.09 Other forms of dyspnea; I27.20 Pulmonary hypertension, unspecified | CPT/HCPCS: 99212 ==

== ENCOUNTER 2025-04-24 10:44 | Emergency (ER) | payer OTHER, SELFPAY ==
--- NOTE | ~2025-04-24 | XR_ITS ---
EXAMINATION: XR SHOULDER, RIGHT CLINICAL INFORMATION: pain s/p fall COMPARISON: None available. TECHNIQUE: Three views of the right shoulder. FINDINGS: Acromioclavicular distance is prominent measuring 0.8 cm, on one of the views.. Mild hypertrophy of the distal clavicle marginating the joint. No visible acute fracture, dislocation or suspicious bony lesion. Glenohumeral articulation is maintained, limiting evaluation of the joint space the provided views. No abnormal soft tissue calcification. XR/XR shoulder RT min 2V IMPRESSION: Prominence of the acromioclavicular distance, could reflect sprain injury. Clinically correlate. Mild acromioclavicular arthritis. Electronically signed by: Dilip Regalado MD 04/24/2025 11:50 AM [facility]
--- NOTE | ~2025-04-24 | XR_ITS ---
EXAMINATION: XR ANKLE 3 OR MORE VIEWS LEFT, XR FOOT 3 OR MORE VIEWS LEFT HISTORY: pain s/p fall COMPARISON: There are no prior studies available for comparison. FINDINGS: Six views of the left foot and ankle are submitted. Osseous mineralization is normal. There is a mildly displaced oblique fracture of the distal 5th metatarsal. No additional fracture is identified. There is no dislocation. The joint spaces are preserved. The soft tissues are unremarkable. XR/XR foot LT min 3V IMPRESSION: Mildly displaced oblique fracture of the distal 5th metatarsal. Electronically signed by: Florencio Strange MD 04/24/2025 11:47 AM [facility]
--- NOTE | ~2025-04-24 | XR_ITS ---
EXAMINATION: XR ANKLE 3 OR MORE VIEWS LEFT, XR FOOT 3 OR MORE VIEWS LEFT HISTORY: pain s/p fall COMPARISON: There are no prior studies available for comparison. FINDINGS: Six views of the left foot and ankle are submitted. Osseous mineralization is normal. There is a mildly displaced oblique fracture of the distal 5th metatarsal. No additional fracture is identified. There is no dislocation. The joint spaces are preserved. The soft tissues are unremarkable. XR/XR ankle LT min 3V IMPRESSION: Mildly displaced oblique fracture of the distal 5th metatarsal. Electronically signed by: Florencio Strange MD 04/24/2025 11:47 AM JOSE
[2025-04-24 11:20] VITALS: BP 123/82; PULSE 89; RESP 16; TEMP 36.6; O2SAT 95; BMI 29.1
--- NOTE | 2025-04-24 11:21 | ED.LOWEXIN ---
HPI - Extremity Injury (Lower) General Chief Complaint: Fall Stated Complaint: fall - foot injury Time Seen by Provider: 04/24/25 11:58 Source: patient and RN notes reviewed Mode of arrival: wheelchair Limitations: no limitations History of Present Illness ED Provider: Dena Campa PA-C HPI Narrative: This is a [id number]-male, cerebral palsy, asthma and history of empyema requiring decortication, who presents to the ER with complaints of left foot and right shoulder pain. He tripped over his dog's toy yesterday and landed onto his left foot and also onto his right shoulder. No LOC or head strike. Reports pain with weight-bearing. No other complaints or concerns at this time. MD complaint: foot injury Type of Injury: blunt and inversion Place: home Severity: moderate Relieving factors: nothing Exacerbating factors: weight bearing, movement and palpation Context: fall Associated symptoms: swelling Other symptoms: none Related Data Home Medications ?Medication ?Instructions ?Recorded ?Confirmed acetaminophen 650 mg 650 mg PO Q8H PRN pain 08/11/22 04/09/24 tablet,extended release aspirin 81 mg tablet,delayed 81 mg PO DAILY 08/11/22 04/09/24 release atorvastatin 80 mg tablet 80 mg PO DAILY 08/11/22 04/09/24 fluoxetine 60 mg tablet 0 mg PO 08/11/22 04/09/24 gabapentin 600 mg tablet 600 mg PO BID 08/11/22 04/09/24 meclizine 12.5 mg tablet 12.5 mg PO TID PRN 08/11/22 04/09/24 melatonin 5 mg tablet 5 mg PO BEDTIME 08/11/22 04/09/24 tizanidine 4 mg tablet 4 mg PO Q8H PRN muscle spasm 08/11/22 04/09/24 sennosides 8.6 mg tablet (senna) 8.6 mg PO DAILY 10/04/23 04/09/24 trazodone 150 mg tablet 150 mg PO BEDTIME 10/04/23 04/09/24 Previous Rx's ?Medication ?Instructions ?Recorded furosemide 20 mg tablet (Lasix) 20 mg PO DAILY #3 tabs 04/09/24 budesonide-formoterol HFA 160 2 puff inhalation BID 30 days 07/30/24 mcg-4.5 mcg/actuation aerosol #10.2 grams inhaler (Symbicort) Ventolin HFA 90 mcg/actuation 2 puff inhalation Q6H PRN for 02/11/25 aerosol inhaler (albuterol sulfate) wheezing 30 days #18 grams azelastine 137 mcg (0.1 %) nasal 2 spray intranasal BID #90 mL 02/11/25 spray acetaminophen 500 mg tablet 1,000 mg (2 x 500 mg) PO Q6H PRN 04/24/25 (Tylenol Extra Strength) pain #30 tabs ibuprofen 600 mg tablet 600 mg PO Q6H PRN pain #30 tabs 04/24/25 Allergies Allergy/AdvReac Type Severity Reaction Status Date / Time pineapple Allergy Mild Rash Verified 04/24/25 11:22 Review of Systems Review of Systems: Constitutional : No Fever, No Chills ENT/Mouth : No sore throat, No Rhinorrhea Eyes: No Eye Pain, No Swelling, No Redness Cardiovascular : No Chest Pain, No SOB Respiratory : No Cough, No Sputum Gastrointestinal : No Nausea, No Vomiting, No Diarrhea, No abdominal Pain Genitourinary : No Dysuria, No Hematuria Musculoskeletal : + joint pain, No Myalgias, + Joint Swelling Skin : No Skin Lesions Neuro : No Weakness, No Numbness, No Headache All other systems reviewed and are negative Yes all other systems are reviewed and are negative Constitutional: Constitutional: Reports as per [facility] Past Medical History Medical History (Updated 04/24/25 @ 13:39 by MAKENNA Gibson) Lower extremity edema MELCHOR (obstructive sleep apnea) COVID-19 Empyema Asthma Dyspnea Cerebral palsy Social History Social History Patient Tobacco Use Status: Never used Tobacco Advance Directives: No Advance Directives Information Provided: Yes Physical Exam Exam: Exam: General: Awake, alert, and oriented X3. No acute distress. HEENT: Normal inspection CVS: Normal heart rate and rhythm. Pulses normal. Respiratory: No respiratory distress Skin: Warm, dry, no rashes noted to exposed skin. Normal skin color. Normal skin turgor. Extremities: Left foot with tenderness palpation along the 5th metatarsal bone with edema noted overlying the dorsum of the foot. Strong DP pulse. No calf tenderness. Achilles tendon is intact. No medial or lateral malleoli tenderness. Right shoulder with no obvious bony deformity or swelling. He had tenderness palpation along the right AC joint. Strong radial pulse. Positive lift-off. Able to forward flex abduct the arm without difficulty. Neuro: Oriented X 3. No motor deficit. No sensory deficit. Vital Signs: Vital Signs: Last Vital Signs Temp 98 F 04/24/25 13:55 Pulse 89 04/24/25 13:55 Resp 16 04/24/25 13:55 BP 123/82 04/24/25 13:55 Pulse Ox 95 04/24/25 13:55 O2 Del Method Room Air 04/24/25 13:55 BMI result Body Mass Index 29.1 Medical Decision Making Medical Decision Making MDM Narrative: This is a 50-year-old male who presents emergency department with concerns of left foot and right shoulder pain. No head strike or LOC, vital signs within normal limits. Left foot with tenderness palpation along the forefoot along the 5th metatarsal. X-rays were obtained, patient has a 5th metatarsal displaced fracture. Discussed findings with orthopedic PA, recommending walking boot, and nonweightbearing. Given that he has a history of cerebral palsy, and weakness in the left side, patient is unable to use crutches. Discussed with patient, he does have a wheelchair at home that he can utilize. Right shoulder also has a prominence of the acromioclavicular distance which could reflect a sprain. He has full ROM of the shoulder without difficulty. Given this, he will follow-up with the communication specialist. Given strict return precautions, he understands agrees with plan. Patient stable for discharge. Differential Diagnosis Differential Diagnoses: The differential diagnosis associated with the presentation includes Fracture, contusion, sprain, strain Radiology Impression Discussion of test interpretation with radiology: I have reviewed the radiologist's reading. Radiologist Impression: COMPARISON: None available. TECHNIQUE: Three views of the right shoulder. FINDINGS: Acromioclavicular distance is prominent measuring 0.8 cm, on one of the views.. Mild hypertrophy of the distal clavicle marginating the joint. No visible acute fracture, dislocation or suspicious bony lesion. Glenohumeral articulation is maintained, limiting evaluation of the joint space the provided views. No abnormal soft tissue calcification. XR/XR shoulder RT min 2V IMPRESSION: Prominence of the acromioclavicular distance, could reflect sprain injury. Clinically correlate. Mild acromioclavicular arthritis. Electronically signed by: Dilip Regalado MD 04/24/2025 11:50 AM EST RP Dictated By: Dilip Regalado MD [address] [address] XRay Report Signed Patient: Jarod Napier MR#: [id number] : 1975 Acct:[id number] Age/Sex: 50 / M ADM Date: 04/24/25 Loc: .ED Attending Dr: Ordering Physician: Dena Campa Date of Service: 04/24/25 Procedure(s): XR foot LT min 3V Accession Number(s): [id number] cc: Matilde Danielson MD; Dena Campa~ Reason for Exam: pain EXAMINATION: XR ANKLE 3 OR MORE VIEWS LEFT, XR FOOT 3 OR MORE VIEWS LEFT HISTORY: pain s/p fall COMPARISON: There are no prior studies available for comparison. FINDINGS: Six views of the left foot and ankle are submitted. Osseous mineralization is normal. There is a mildly displaced oblique fracture of the distal 5th metatarsal. No additional fracture is identified. There is no dislocation. The joint spaces are preserved. The soft tissues are unremarkable. XR/XR foot LT min 3V IMPRESSION: Mildly displaced oblique fracture of the distal 5th metatarsal. Electronically signed by: Florencio Strange MD 04/24/2025 11:47 AM EST RP Dictated By: Florencio Strange MD Discharge Plan Discharge Clinical Impression: Strain of shoulder, right Closed fracture of fifth metatarsal bone Qualifiers: Encounter type: initial encounter Fracture alignment: displaced Laterality: left Qualified Code(s): S92.352A - Displaced fracture of fifth metatarsal bone, left foot, initial encounter for closed fracture Patient Disposition: Home, Self-Care Instructions: Muscle Strain (ED), Foot Fracture in Adults (ED), Shoulder Pain (ED), Cold Compress or Soak (ED) Additional Instructions: You were seen in the emergency department and unfortunately fractured your left foot. You need to keep your foot in the boot until you follow-up with podiatry. Call today to make an appointment. Your x-ray of your right shoulder does show some joint separation which could be attributed to a muscle strain or ligament issue. Please follow-up with the communication specialist regarding your right shoulder. Gentle range of motion can be beneficial for you. Please perform those exercises at home. Alternate between ibuprofen and or Tylenol. Rest or ice the regions of pain to help with pain. If any new or worsening symptoms occur including but not limited to worsening pain, decreased sensation, chest pain, shortness of breath, please seek emergent care. Prescriptions: New ibuprofen 600 mg tablet 600 mg PO Q6H PRN (Reason: pain) Qty: 30 0RF acetaminophen [Tylenol Extra Strength] 500 mg tablet 1,000 mg PO Q6H PRN (Reason: pain) Qty: 30 0RF No Action budesonide-formoterol [Symbicort] 160-4.5 mcg/actuation HFA aerosol inhaler 2 puff inhalation BID 30 Days Qty: 10.2 11RF albuterol sulfate [Ventolin HFA] 90 mcg/actuation HFA aerosol inhaler 2 puff inhalation Q6H PRN (Reason: for wheezing) 30 Days Qty: 18 11RF gabapentin 600 mg tablet 600 mg PO BID meclizine 12.5 mg tablet 12.5 mg PO TID PRN tizanidine 4 mg tablet 4 mg PO Q8H PRN (Reason: muscle spasm) aspirin 81 mg tablet,delayed release (DR/EC) 81 mg PO DAILY atorvastatin 80 mg tablet 80 mg PO DAILY fluoxetine 60 mg tablet 0 mg PO melatonin 5 mg tablet 5 mg PO BEDTIME acetaminophen 650 mg tablet extended release 650 mg PO Q8H PRN (Reason: pain) furosemide [Lasix] 20 mg tablet 20 mg PO DAILY Qty: 3 0RF azelastine 137 mcg (0.1 %) spray,non-aerosol 2 spray intranasal BID Qty: 90 3RF trazodone 150 mg tablet 150 mg PO BEDTIME sennosides [senna] 8.6 mg tablet 8.6 mg PO DAILY Referrals: [facility] [Provider Group] Nadir Stern DPM [Skiver Machine Operator, Podiatry] Referral Note: displaced fifth metatarsal fracture Interventions: ED Discharge Assessment Last Done: 04/24/25 13:55 Discharge Date/Time: 04/24/25 13:56 Print Language: [place]
[2025-04-24 13:55] VITALS: BP 123/82; PULSE 89; RESP 16; TEMP 36.6; O2SAT 95
--- OUTSIDE RECORDS SUMMARY | 2025-04-24 16:00 | XMS_ITS | Encounter Summary ---
Author Organization [facility] Address [address] [place] [address] Care Team Providers Care Seasoner Name Role Phone Matilde Danielson MD Primary Care Provider [phone] Encounter Details Date Type Department Care Team (Late Contact Info) Description 03/24/2025 Results Follow-Up Internal Medicine [facility] [address] [facility] [address] [place] [phone] Matilde Danielson MD [address] [place] [phone] Social History Tobacco Use Types Packs/Day Years Used Date Smoking Tobacco: Never Smokeless Tobacco: Never Alcohol Use Standard Drinks/Week Comments No 0 (1 standard drink = 0.6 oz pur e alcohol) Sex and Gender Information Value Date Recorded Sex Assigned at Not on file Legal Sex Male 6:39 PM EST Gender Identity Not on file Sexual Orientation Not on file documented as of this encounter Plan of Treatment Upcoming Encounters Date Type Department Care Team (Late Contact Info) Description 05/09/2025 9:00 AM EST Office Visit [facility] [address] [facility] [address] [place] [phone] Mildred Mendoza PA [address] [place] [phone] 03/30/2026 8:30 AM EST Office Visit Internal Medicine [facility] [address] [facility] [address] [place] [phone] Mtailde Danielson MD [address] [place] [phone] documented as of this encounter Visit Diagnoses Not on filedocumented in this encounter Care Teams Seasoner Relationship Specialty Start Date End Date Matilde Danielson MD [address] [place] [phone] PCP - General Internal Medicine 04/06/15 documented as of this encounter
--- OUTSIDE RECORDS SUMMARY | 2025-04-24 16:00 | XMS_ITS | Clinical Summary ---
Author Organization [facility] Address [address] [place] [address] Phone Care Team Providers Care Fish Liver Sorter Name Role Phone Aba Polanco MD Primary Care Provider Melissa Grant MD Unavailable [phone] Allergies No known active allergies Medications ibuprofen [...] (#1) 2024 , 02/19/2020, 02/16/2018 COVID-19 VACCINE (4 - 2024-2 6 season) 2025 02/23/2021, 08/18/2020, 07/28/2020 PNEUMOCOCCAL VACCINES (50+ years) (1 of 1 - PCV) 2025 ZOSTER VACCINES (1 of 2) 2025 RSV VACCINE (1 - 1-dose 75+ series) 2050 HEPATITIS A VACCINES Aged Out No long [...] topic Medical Devices Not on file Insurance [employer] TOTAL CHOICE INDEMNITY [employer] TOTAL CHOICE INDEMNITY [employer] TOTAL CHOICE INDEMNITY [employer] [facility] TOTAL CHOICE INDEMNITY [employer] TOTAL CHOICE INDEMNITY [employer] [facility] TOTAL CHOICE INDEMNITY [employer] TOTAL CHOICE INDEMNITY [employer] TOTAL CHOICE INDEMNITY [employer] TOTAL CHOICE INDEMNITY Care Teams Fish Liver Sorter Relationship Specialty Start Date End Date Aba Polanco MD PCP - General 05/15/15 Melissa Grant MD [address] [place] [address] Drive [address] [place] [address] Neurosurgery 07/06/15 Additional Source Comments The information contained in this document represents components of the legal health record. It is not the complete legal health record[facility]
--- OUTSIDE RECORDS SUMMARY | 2025-04-24 16:00 | XMS_ITS | Clinical Summary ---
Author Organization [facility] Address [address] [place] [address] Phone Care Team Providers Care Purchasing Department Clerk Name Role Phone Matilde Danielson MD Primary Care Provider Allergies Active Allergy Reactions Criticality Noted Date Comments Nany 12/05/2018 Medications albuterol 2.5 mg /3 mL (0.083 %) nebulizer solution Take 1 Vial by nebulization every 6 hours as needed for Wheezing. 2 Active albuterol HFA (PROAIR HFA ; PROVENTIL HFA ; VENTOLIN HFA) 90 mcg/actuation inhaler Inhale 2 Puffs into the lungs every 4 hours as needed for Cough. 2 Active budesonide-for moteroL (Symbicort) 160-4.5 mcg/actuation inhaler Inhale 2 Puffs into the lungs daily. 4 Active butalbital-dior taminophen-caf feine (FIORICET, ESGIC) 50-325-40 mg per tablet Take 1 Tablet by mouth every 6 hours as needed for Headaches. 4 Active aspirin 81 mg EC tabletIndicati ons:Dizziness and giddiness,Unst eadiness on feet Take 1 tablet (81 mg total) by mouth 1 (one) time each day. 90 tablet 1 5 Active atorvastatin (LIPITOR) 80 mg tabletIndicati ons:Dizziness and giddiness,Unst eadiness on feet Take 1 tablet (80 mg total) by mouth 1 (one) time each day. 90 tablet 3 5 Active cyclobenzaprin e (FLEXERIL) 5 mg tablet Take 1 tablet (5 mg total) by mouth 3 (three) times a day if needed for muscle spasms. 30 tablet 3 5 Active gabapentin (NEURONTIN) 600 mg tabletIndicati ons:Dizziness and giddiness,Unst eadiness on feet Take 1 tablet (600 mg total) by mouth 2 (two) times a day. 60 tablet 8 5 Active meclizine (ANTIVERT) 12.5 mg tabletIndicati ons:Dizziness and giddiness,Unst eadiness on feet Take 1 tablet (12.5 mg total) by mouth 3 (three) times a day if needed for dizziness. 90 tablet 1 5 Active melatonin 5 mg tablet Take 1 tablet (5 mg total) by mouth at bedtime. at bedtime. 90 tablet 1 5 Active senna 8.6 mg tabletIndicati ons:Dizziness and giddiness,Unst eadiness on feet Take 1 tablet (8.6 mg [...] each day. 90 each 5 5 Active azelastine (ASTELIN) 137 mcg (0.1 %) nasal spray Administer 1 spray into each nostril 2 (two) times a day. 5 Active phenytoin (DILANTIN) 50 mg chewable tablet 1 po hs x 2 wks, then increase to 1 po bid 60 tablet 5 5 Active phenytoin (Dilantin KapseaL) 100 mg ER capsule 1 po tid 90 each 5 5 Active phenytoin (Dilantin KapseaL) 100 mg ER capsule 1 po hs x 2 weeks, then 1 po bid 60 each 5 5 025 Discontin ued(Reord er) Active Problems Problem Noted Date Diagnosed Date Nonintractable headache 06/27/2022 COVID-19 virus detected 11/10/2021 Herniation of intervertebral disc at C5-C6 level 06/15/2020 Arnold-Chiari malformation 10/04/2017 Insomnia 10/04/2017 Hydrocephalus 04/21/2017 Seizure disorder 04/21/2017 Lung nodule 04/21/2017 Spina bifida 04/21/2017 Depression 04/04/2017 Allergic rhinitis 10/11/2016 Asthma 10/11/2016 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 Restrictive lung disease 06/07/2016 Encounters Date Type Department Care Team Description 03/24/2025 9:30 AM EST Lab Draw Station - [facility] [address] [place] [phone] Seizure disorder (CMS/HCC V24, CMS/HCC V28); Hydrocephalus, unspecified type (CMS/HCC V24, CMS/HCC V28); Vitamin D deficiency; Adult general medical examination; Other fatigue 03/24/2025 9:00 AM EST Office Visit Internal Medicine [facility] [address] [facility] [address] [place] [address] Matilde Danielson MD Adult general medical examination (Primary Dx); Hydrocephalus, unspecified type (CMS/HCC V24, CMS/HCC V28); Seizure disorder (CMS/HCC V24, CMS/HCC V28); Vitamin D deficiency; Other fatigue; Monoplegic infantile cerebral palsy (CMS/HCC V24, CMS/HCC V28) 03/24/2025 Results Follow-Up Internal Medicine - [place] [address] [facility] [address] [place] [address] Matilde Danielson MD 03/24/2025 Telephone Internal Medicine - [place] 175 [facility] [address] [place] [phone] Matilde Danielson MD 03/05/2025 2:30 PM EDT Office Visit [facility] [place] [address] [facility] [address] [place] [phone] Mildred Mendoza PA Seizure disorder ([facility] V24, [facility] V28) (Primary Dx) from Last 3 Months Immunizations Immunization Administration Dates Next Due Influenza Quadravalent, MDCK , 0.5ml, preservative free (Flucelvax) 6mo and older 02/16/2018 Influenza, Unspecified 03/02/2022 Pfizer SARS-CoV-2 COVID-19, mRNA, LNP-S, preservative free 02/23/2021 Surgical History Surgery Date Site/Laterality Comments BACK SURGERY PROCEDURE: HISTORICAL BACK SURGERY OTHER SURGICAL HISTORY 06/17/2020 PROCEDURE: SC ARTHRD PST/PSTLAT TQ 1NTRSPC CRV BELW C2 SEGMENT Medical History Medical History Date Comments Lung nodule 04/21/2017 DX:Lung nodule Spina bifida ([facility] V24, [place]/[facility] V28) 04/21/2017 DX:Spina bifida ([facility]) Hydrocephalus ([facility] V24, [facility] V28) 04/21/2017 DX:Hydrocephalus ([facility]) Seizure disorder ([facility] V2 4, [facility] V28) 04/21/2017 DX:Seizure disorder ([facility]) History of pleural empyema 04/21/2017 DX:Hi story of pleural empyema Arnold-Chiari malformation ( [facility] V24, [facility] V28) 10/04/2017 DX:Arnold-Chiari malformatio n ([facility]) Depression 04/04/2017 DX:Depression Insomnia 10/04/2017 DX:Insomnia Monoplegic infantile cerebra l palsy ([facility] V24, [facility]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 DX:Monoplegic infantile cer ebral palsy ([facility]) Restrictive lung disease 06/07/2016 DX:Rest rictive lung [...] Not Answered Alcohol Use Standard Drinks/Week Comments No 0 (1 standard drink = 0.6 oz pur e alcohol) Sex and Gender Information Value Date Recorded Sex Assigned at Not on file Legal Sex Male 6:39 PM EST Gender Identity Not on file Sexual Orientation Not on file Last Filed Vital Signs Vital Sign Reading Time Taken Comments Blood Pressure 130/84 03/24/2025 8:38 AM EST Pulse 64 03/24/2025 8:38 AM EST Temperature 36.7 C (98 F) 03/24/2025 8:38 AM EST Respiratory Rate 18 03/24/2025 8:38 AM EST Oxygen Saturation 95% 03/24/2025 8:38 AM EST Inhaled Oxygen Concentration - - Weight 86.6 kg (191 lb) 03/24/2025 8:38 AM EST Height 175.3 cm (5' 9 ) 03/24/2025 8:38 AM EST Body Mass Index 28.21 03/24/2025 8:38 AM EST Plan of Treatment Upcoming Encounters Date Type Department Care Team (Late st Contact Info) Description 05/09/2025 9:00 AM EST Office Visit [facility] 175 [facility] [address] [place] [phone] Mildred Mendoza, PA [address] [place] [phone] 03/30/2026 8:30 AM EST Office Visit Internal Medicine - [place] [address] [facility] [address] [place] [phone] Matilde Danielson MD [address] [place] [address] Health Maintenance Due Date Last Done Comments Colorectal Cancer Screening: Colonoscopy 1975 Drug Screen 1975 Non-Opioid Controlled Substance Agreement 1975 Hepatitis B Vaccines (1 of 3 - 19+ 3-dose series) 1994 HIV Screening 04/16/2022 Hepatitis C Screening 04/16/2022 Social Influencers of Health Screening 04/16/2022 Depression Screening 05/08/2024 04/12/2023 COVID-19 Vaccine ( season) 2025 03/01/2023, 02/28/2022, 02/23/2021, Additional history exists RSV Immunization Adult Patients (1 - Risk 50-74 years 1-dose series) 2025 Zoster Vaccines (1 of 2) 2025 Cholesterol Screening (Lipid Panel) 03/24/2030 03/24/2025, 09/13/2023, 09/13/2023 DTaP,Tdap,and Td Vaccines (2 - Td or Tdap) 02/12/2035 02/12/2025 Pneumococcal Vaccine: 50+ Years Completed 03/01/2023 Influenza Vaccine Completed 02/12/2025, , 03/02/2022, Additional history exists HIB Vaccines Aged Out No longer eligi [...] Procedure Name Priority Date/Time Associated Diagnosis Comments BILIRUBIN DUPLICATE PROCEDURE TO ORDER Routine 03/24/2025 9:05 AM EST Seizure disorder (CMS/HCC V24, CMS/[facility] V28) CBC WITH AUTO DIFFERENTIAL Routine 03/24/2025 9:05 AM EST Seizure disorder (CMS/HCC V24, CMS/[facility] V28) CBC AND DIFFERENTIAL Routine 03/24/2025 9:05 AM EST Seizure disorder (CMS/HCC V24, CMS/HCC V28) HEMOGLOBIN A1C Routine 03/24/2025 9:05 AM EST Hydrocephalus, unspecified type (CMS/HCC V24, CMS/HCC V28) Seizure disorder (CMS/HCC V24, CMS/HCC V28) Vitamin D deficiency Adult general medical examination Other fatigue COMPREHENSIVE METABOLIC PANEL Routine 03/24/2025 9:05 AM EST Hydrocephalus, unspecified type (CMS/HCC V24, CMS/HCC V28) Seizure disorder (CMS/HCC V24, CMS/HCC V28) Vitamin D deficiency Adult general medical examination Other fatigue LIPID PANEL WITH REFLEX TO DIRECT LDL Routine 03/24/2025 9:05 AM EST Hydrocephalus, unspecified type (CMS/HCC V24, CMS/HCC V28) Seizure disorder (CMS/HCC V24, CMS/HCC V28) Vitamin D deficiency Adult general medical examination Other fatigue THYROID STIMULATING HORMONE Routine 03/24/2025 9:05 AM EST Hydrocephalus, unspecified type (CMS/HCC V24, CMS/HCC V28) Seizure disorder (CMS/HCC V24, CMS/HCC V28) Vitamin D deficiency Adult general medical examination Other fatigue VITAMIN B12 Routine 03/24/2025 9:05 AM EST Hydrocephalus, unspecified type (CMS/HCC V24, CMS/HCC V28) Seizure disorder (CMS/HCC V24, CMS/HCC V28) Vitamin D deficiency Adult general medical examination Other fatigue VITAMIN D 25 HYDROXY Routine 03/24/2025 9:05 AM EST Hydrocephalus, unspecified type (CMS/HCC V24, CMS/HCC V28) Seizure disorder (CMS/HCC V24, CMS/HCC V28) Vitamin D deficiency Adult general medical examination Other fatigue PHENYTOIN LEVEL, TOTAL Routine 9:05 AM EST Seizure disorder (CMS/HCC V24, CMS/HCC V28) HM DEPRESSION SCREENING Routine 04/12/2023 from Last 3 Months or Most Recently Relevant to Health Maintenance Results * Bilirubin duplicate procedure to order (03/24/2025 9:05 AM EST) Total Bilirubin 0.4 0.0 - 1.4 mg/dL LAB CHEMISTRY METHOD 03/24/2025 11:11 AM [facility] Bilirubin, Direct 0.1 0.0 - 0.3 mg/dL LAB CHEMISTRY METHOD 03/24/2025 11:11 AM [facility] Bilirubin, Indirect 0.3 0.0 - 1.1 mg/dL LAB CHEMISTRY METHOD 03/24/2025 11:11 AM [facility] Blood Venous blood specimen / Unknown Venipuncture / Unknown 03/24/2025 9:05 AM EST 03/24/2025 9:05 AM EST Mildred MENSAH LAB BLOOD ORDERABLES Final R esult [facility] [address] [place] [address], [place] [phone] * Lipid panel with reflex to direct LDL (03/24/2025 9:05 AM EST) Pathologist [facility] Cholesterol 126 0 - 200 mg/dL LAB CHEMISTRY METHOD 03/24/2025 11:11 AM [facility] Triglycerides 53 0 - 150 mg/dL LAB CHEMISTRY METHOD 03/24/2025 11:11 AM [facility] HDL 52 >=40 mg/dL LAB CHEMISTRY METHOD 03/24/2025 11:11 AM [facility] LDL Calculated 63 0 - 100 mg/dL LAB CHEMISTRY METHOD 03/24/2025 11:11 AM [facility] Comment:Estimated LDL Calcul ated using equation: Total cholesterol - HDL cholesterol - (Triglycerides/5) VLDL Cholesterol Johnny 10.6 mg/dL LAB CHEMISTRY METHOD 03/24/2025 11:11 AM [facility] Non HDL Chol. (LDL+VLDL) 74 <145 mg/dL LAB CHEMISTRY METHOD 03/24/2025 11:11 AM [facility] Chol/HDL Ratio 2.4 0.0 - 4.4 LAB CHEMISTRY METHOD 03/24/2025 11:11 AM [facility] Blood Venous blood specimen / Unknown Venipuncture / Unknown 03/24/2025 9:05 AM EST 03/24/2025 9:05 AM EST us Matilde Danielson MD LAB BLOOD ORDERABLES Final Res ult [facility] [address] [place] [address], [place] [phone] * (ABNORMAL) CBC auto differential (03/24/2025 9:05 AM EST) WBC 4.5(L) 4.8 - 10.8 K/mcL LAB HEMETOLOGY METHOD 03/24/2025 10:17 AM [facility] RBC 4.60 4.50 - 5.50 M/mcL LAB HEMETOLOGY METHOD 03/24/2025 10:17 AM [facility] Hemoglobin 14.0 13.5 - 17.5 g/dL LAB HEMETOLOGY METHOD 03/24/2025 10:17 AM [facility] Hematocrit 43.1 42.0 - 54.0 % LAB HEMETOLOGY METHOD 03/24/2025 10:17 AM [facility] MCV 94.3 79.0 - 98.0 FL LAB HEMETOLOGY METHOD 03/24/2025 10:17 AM [facility] MCH 30.6 27.0 - 32.0 pcg LAB HEMETOLOGY METHOD 03/24/2025 10:17 AM [facility] MCHC 32.5 32.0 - 37.0 g/dL LAB HEMETOLOGY METHOD 03/24/2025 10:17 AM [facility] RDW 12.6 11.0 - 15.0 % LAB HEMETOLOGY METHOD 03/24/2025 10:17 AM [facility] Platelets 168 130 - 400 K/mcL LAB HEMETOLOGY METHOD 03/24/2025 10:17 AM [facility] MPV 10.2 7.0 - 11.0 FL LAB HEMETOLOGY METHOD 03/24/2025 10:17 AM [facility] NRBC 0.0 <1.0 % LAB HEMETOLOGY METHOD 03/24/2025 10:17 AM [facility] NRBC Absolute 0.00 <0.10 K/mcL LAB HEMETOLOGY METHOD 03/24/2025 10:17 AM [facility] Neutrophils Relative 63.4 % LAB HEMETOLOGY METHOD 03/24/2025 10:17 AM [facility] Lymphocytes Relative 20.9 % LAB HEMETOLOGY METHOD 03/24/2025 10:17 AM [facility] Monocytes Relative 11.5 % LAB HEMETOLOGY METHOD 03/24/2025 10:17 AM [facility] Eosinophils Relative 3.1 % LAB HEMETOLOGY METHOD 03/24/2025 10:17 AM [facility] Basophils Relative 0.9 % LAB HEMETOLOGY METHOD 03/24/2025 10:17 AM [facility] Immature Granulocytes Relative 0.2 % LAB HEMETOLOGY METHOD 03/24/2025 10:17 AM [facility] Neutrophils Absolute 2.82 1.50 - 7.00 K/mcL LAB HEMETOLOGY METHOD 03/24/2025 10:17 AM [facility] Lymphocytes Absolute 0.93(L) 1.00 - 5.00 K/mcL LAB HEMETOLOGY METHOD 03/24/2025 10:17 AM EST [facility] Monocytes Absolute 0.51 0.20 - 1.00 K/mcL LAB HEMETOLOGY METHOD 03/24/2025 10:17 AM EST [facility] Eosinophils Absolute 0.14 0.00 - 0.50 K/mcL LAB HEMETOLOGY METHOD 03/24/2025 10:17 AM EST [facility] Basophils Absolute 0.04 0.00 - 0.20 K/mcL LAB HEMETOLOGY METHOD 03/24/2025 10:17 AM EST [facility] Immature Granulocytes Absolute 0.01 0.00 - 0.03 K/mcL LAB HEMETOLOGY METHOD 03/24/2025 10:17 AM [facility] Blood Venous blood specimen / Unknown Venipuncture / Unknown 03/24/2025 9:05 AM EST 03/24/2025 9:05 AM EST Mildred MENSAH LAB BLOOD ORDERABLES Final R esult Performing Organization Address City/[facility]/ZIP Co de Phone Number [facility] [address] [place] [address], [place] [phone] * Vitamin D 25 hydroxy (03/24/2025 9:05 AM EST) Vit D, 25-Hydroxy 47.9 30.0 - 80.0 ng/mL LAB CHEMISTRY METHOD 03/24/2025 12:21 PM EST [facility] Blood Venous blood specimen / Unknown Venipuncture / Unknown 03/24/2025 9:05 AM EST 03/24/2025 9:05 AM EST Matilde Danielson MD LAB BLOOD ORDERABLES Final Res ult [facility] [address] [place] [address], [place] [phone] * Thyroid stimulating hormone (03/24/2025 9:05 AM EST) TSH 1.18 0.40 - 4.00 mcIU/mL LAB CHEMISTRY METHOD 03/24/2025 12:21 PM EST [facility] Blood Venous blood specimen / Unknown Venipuncture / Unknown 03/24/2025 9:05 AM EST 03/24/2025 9:05 AM EST Matilde Danielson MD LAB BLOOD ORDERABLES Final Res ult Performing Organization Address City/[facility]/ZIP Co de Phone Number [facility] [address] [place] [address], [place] [phone] * Hemoglobin A1c (03/24/2025 9:05 AM EST) Hemoglobin A1C 5.7 <6.5 % LAB CHEMISTRY METHOD 03/24/2025 11:29 AM EST [facility] Mean Bld Glu Estim. 117 mg/dL LAB CHEMISTRY METHOD 03/24/2025 11:29 AM EST [facility] Blood Venous blood specimen / Unknown Venipuncture / Unknown 03/24/2025 9:05 AM EST 03/24/2025 9:05 AM EST Matilde Danielson MD LAB BLOOD ORDERABLES Final Res ult [facility] [address] [place] [address], [place] [phone] * Vitamin B12 (03/24/2025 9:05 AM EST) Vitamin B-12 679 250 - 900 pcg/mL LAB CHEMISTRY METHOD 03/24/2025 11:11 AM EST [facility] Blood Venous blood specimen / Unknown Venipuncture / Unknown 03/24/2025 9:05 AM EST 03/24/2025 9:05 AM EST us Matilde Danielson MD LAB BLOOD ORDERABLES Final Res ult [facility] [address] [place] [address], [place] [phone] * (ABNORMAL) Phenytoin level total (03/24/2025 9:05 AM EST) [facility] Phenytoin Level 1.3(L) 10.0 - 20.0 mcg/mL LAB CHEMISTRY METHOD 03/24/2025 12:03 PM [facility] Comment:Results verified by repeat testing Blood Venous blood specimen / Unknown Venipuncture / Unknown 03/24/2025 9:05 AM EST 03/24/2025 9:05 AM EST Mildred MENSAH LAB BLOOD ORDERABLES Final R esult Performing Organization Address [facility]/ZIP Co de Phone Number [facility] [address] [place] [address], [place] [phone] * (ABNORMAL) Comprehensive metabolic panel (03/24/2025 9:05 AM EST) [facility] Sodium 138 133 - 145 mmol/L LAB CHEMISTRY METHOD 03/24/2025 11:11 AM [facility] Potassium 4.1 3.5 - 5.5 mmol/L LAB CHEMISTRY METHOD 03/24/2025 11:11 AM [facility] Chloride 105 96 - 110 mmol/L LAB CHEMISTRY METHOD 03/24/2025 11:11 AM [facility] CO2 30 21 - 32 mmol/L LAB CHEMISTRY METHOD 03/24/2025 11:11 AM [facility] Anion Gap 3 3 - 11 LAB CHEMISTRY METHOD 03/24/2025 11:11 AM [facility] Glucose 93 70 - 100 mg/dL LAB CHEMISTRY METHOD 03/24/2025 11:11 AM [facility] BUN 14 5 - 25 mg/dL LAB CHEMISTRY METHOD 03/24/2025 11:11 AM [facility] Creatinine 1.01 0.70 - 1.30 mg/dL LAB CHEMISTRY METHOD 03/24/2025 11:11 AM [facility] eGFR 91 >=60 mL/min/1. 73m2 LAB CHEMISTRY METHOD 03/24/2025 11:11 AM [facility] Comment:Calculation based on the Chronic Kidney Disease Epidemiology Collaboration (CKD-EPI) equation refit without adjustment for race. BUN/Creatinine Ratio 13.9 LAB CHEMISTRY METHOD 03/24/2025 11:11 AM [facility] Calcium 9.0 8.5 - 10.5 mg/dL LAB CHEMISTRY METHOD 03/24/2025 11:11 AM [facility] AST (SGOT) 20 10 - 42 unit/L LAB CHEMISTRY METHOD 03/24/2025 11:11 AM [facility] ALT (SGPT) 65(H) 10 - 60 unit/L LAB CHEMISTRY METHOD 03/24/2025 11:11 AM [facility] Alkaline Phosphatase 110 42 - 121 unit/L LAB CHEMISTRY METHOD 03/24/2025 11:11 AM [facility] Total Protein 7.0 6.0 - 8.0 g/dL LAB CHEMISTRY METHOD 03/24/2025 11:11 AM [facility] Albumin 3.9 3.2 - 5.0 g/dL LAB CHEMISTRY METHOD 03/24/2025 11:11 AM [facility] Total Bilirubin 0.4 0.0 - 1.4 mg/dL LAB CHEMISTRY METHOD 03/24/2025 11:11 AM [facility] Blood Venous blood specimen / Unknown Venipuncture / Unknown 03/24/2025 9:05 AM EST 03/24/2025 9:05 AM EST us Matilde Danielson MD LAB BLOOD ORDERABLES Final Res ult [facility] [address] [place] [address], * Depression Screening (04/12/2023) Depression Screening Abstracted Historical Provider HEALTH MAINTENANCE Final Result from Last 3 Months or Most Recently Relevant to Health Maintenance [place] [address] [place] [address] Care Teams Purchasing Department Clerk Relationship Specialty Start Date End Date Matilde Danielson MD [address] [place] [phone] PCP - General Internal Medicine 04/06/15
--- OUTSIDE RECORDS SUMMARY | 2025-04-24 16:00 | XMS_ITS | Clinical Summary ---
Author Organization [facility] Address [address] [place] [address] Care Team Providers Care Science Editor Name Role Phone Dionicio Singh Primary Care Provider [phone] Allergies Active Allergy Reactions Criticality Noted Date [...] of cardioembolic stroke 07/28/2024 Cerebrovascular disease 07/19/2023 Encounters Date Type Department Care Team Description 04/14/2025 9:30 AM EST Evaluation [facility] [address] [place] [id number] Clinical Biochemical Geneticist: Toma Chi MS White matter disease [R90.82] (Primary Dx) 03/19/2025 Transcribe Orders [facility] [address] [place] [id number] Clinical Biochemical Geneticist: Dionicio Alejandre Cerebrovascular disease (Primary Dx) 03/18/2025 Telephone [facility] [address] [place] [address] Telephone Intake, Staff Testing For Genetic Disease Carrier Status (Genetic testing ) 03/18/2025 Telephone [facility] [address] [place] [phone] Telephone Intake, Staff PAC Clinical Questions from Last 3 Months Family History Medical History Relation Name Comments [...] 07/23/2024 1:07 PM EDT Plan of Treatment Health Maintenance Due Date Last Done Comments Cologuard 1975 Colon Cancer Screening 1975 Colonoscopy 1975 FOBT / Fit Test 1975 HIV Screening 1975 Hepatitis C Screening 1975 Sigmoidoscopy 1975 Hepatitis B Vaccines (1 of 3 - 19+ 3-dose series) 1994 Diabetes Screening 2010 Alcohol/Substance Use Screening 05/08/2024 Depression Screening and Follow-Up 05/08/2024 Social Drivers of Health Justyna ual Screening 05/08/2024 COVID-19 Vaccine (6 - 2024-2 6 season) 2025 03/01/2023, 02/28/2022, 02/23/2021, Additional history exists Zoster Vaccines (1 of 2) 2025 DTaP,Tdap,and Td Vaccines (2 - Td or Tdap) 02/12/2035 02/12/2025 Pneumococcal Vaccine: 50+ Years Completed Influenza Vaccine Completed 02/12/2025, , 03/02/2022, Additional history exists [place] [address] MEDICAID Care Teams Science Editor Relationship Specialty Start Date End Date Dinoicio Singh [address] [facility] [place] [address] PCP - General Neurology 03/13/23
== END 2025-04-24 13:56 | disposition home or self-care (01) ==
PROVIDERS: Emergency Provider Emergency Medicine Emergency Medical Services; PCP Internal Medicine
DX: S92.352A Displaced fracture of fifth metatarsal bone, left foot, initial encounter for closed fracture (principal); S46.911A Strain of unspecified muscle, fascia and tendon at shoulder and upper arm level, right arm, initial encounter; W01.0XXA Fall on same level from slipping, tripping and stumbling without subsequent striking against object, initial encounter; Y93.89 Activity, other specified; Y92.019 Unspecified place in single-family (private) house as the place of occurrence of the external cause; Y99.9 Unspecified external cause status
CPT/HCPCS: 73030; 73610; 73630; 99283